=== PATIENT | male | born 1975 ===

== ENCOUNTER 2020-03-03 06:15 | Outpatient (REF) | payer OTHER, SELFPAY | END 2020-03-03 06:16 | disposition home or self-care (01) | LOC: HO.LAB 06:15 | PROVIDERS: Visit Provider Internal Medicine | DX: Z20.828 Contact with and (suspected) exposure to other viral communicable diseases (principal) | CPT/HCPCS: U0003 ==

== ENCOUNTER 2021-09-29 13:45 | Outpatient (REF) | payer MEDICAID, SELFPAY ==
--- NOTE | ~2021-09-29 | US_ITS ---
EXAMINATION: US SCROTUM CLINICAL INFORMATION: Hydrocele. COMPARISON: None TECHNIQUE: A sonogram of the scrotum was performed assessing khanna-scale appearance and color Doppler flow. Spectral Doppler analysis of the arterial and venous flow were performed in the testes bilaterally. FINDINGS: RIGHT: Right testicle measures 5.6 x 3.3 x 4.0 cm, volume 38.7 mL. No focal testicular parenchymal lesions are visualized. Spectral Doppler analysis of the arterial and venous flow is moderately increased in the right testis. There is a 2.9 x 1.5 x 2.9 cm simple appearing cyst in the epididymal head. No right varicocele is seen. Small volume of hydrocele. LEFT: Left testicle measures 5.0 x 3.5 x 3.7 cm, volume 33.9 mL. No focal testicular parenchymal lesions are visualized. There is a 0.5 cm scrotal estella. Spectral Doppler analysis of the arterial and venous flow is normal in the left testis. There is a complex multiseptated cystic appearing lesion in the epididymal head measuring 3.7 x 4.3 x 4.1 cm. There is a small hydrocele. Varicoceles are also noted. US/US scrotum IMPRESSION: 1. There is a complex multiseptated cystic appearing lesion in the left epididymal head measuring 4.3 cm. This is nonspecific, and further characterization with an MR with and without intravenous contrast is recommended. 2. Asymmetric increased vascular flow to the right testis. Correlate clinically for an infectious or inflammatory process. 3. Left-sided varicocele. 4. There are small bilateral hydroceles. 5. There is a simple appearing epididymal head cyst on the right side measuring 2.9 cm.
== END 2021-09-29 13:46 | disposition home or self-care (01) ==
LOC: HO.HMGCX 13:45
PROVIDERS: Visit Provider Student in an Organized Health Care Education/Training Program
DX: N43.3 Hydrocele, unspecified (principal)
CPT/HCPCS: 76870

== ENCOUNTER → 2021-10-07 09:49 | Outpatient (BNVA) | payer MEDICAID, SELFPAY | PROVIDERS: PCP Student in an Organized Health Care Education/Training Program; Visit Provider Surgery | DX: N50.82 Scrotal pain (principal); N43.3 Hydrocele, unspecified | CPT/HCPCS: 99202 ==

== ENCOUNTER 2022-05-20 05:02 | Emergency (ER) | payer MEDICAID, SELFPAY ==
--- NOTE | ~2022-05-20 | CT_ITS ---
EXAMINATION: CT ABDOMEN AND PELVIS WITHOUT CONTRAST CLINICAL INFORMATION: Left flank pain COMPARISON: None TECHNIQUE: Multidetector volumetric imaging was performed from the superior aspect of the liver through the pubic symphysis. Sagittal and coronal reformatted images were obtained on the technologist's workstation. This CT examination was performed using dose optimization techniques as appropriate, variously including the following: *Automated exposure control *Adjustment of mA and/or kV according to patient size (this includes techniques or standardized protocols for targeted exams where dose is matched to indication/reason for exam; i.e. extremities or head) *Use of iterative reconstruction technique DLP: 435 mGy-cm FINDINGS: LUNG BASES: Groundglass opacities at the right lung base. The visualized cardiac structures are unremarkable. LIVER, GALLBLADDER, AND BILIARY TREE: The liver is normal in size, shape, and attenuation. No focal hepatic lesion or biliary ductal dilatation is present. The gallbladder is unremarkable with no evidence of radiopaque gallstones, gallbladder wall thickening, or obvious pericholecystic inflammatory changes. PANCREAS: Unremarkable. SPLEEN: Unremarkable. ADRENAL GLANDS: Unremarkable. KIDNEYS AND URETERS: The kidneys are normal in size, shape, and attenuation. No hydronephrosis, hydroureter, or calculi seen. No perinephric stranding. BLADDER: Unremarkable. GASTROINTESTINAL TRACT: The stomach is unremarkable. Normal caliber small bowel. No obstruction. No colonic wall thickening or acute inflammation. Normal appendix. No free air or free fluid. ABDOMINAL WALL: No significant hernia is appreciated. LYMPH NODES: Normal. VASCULAR: Normal caliber aorta with minimal atherosclerotic calcifications. PELVIC VISCERA: The prostate and seminal vesicles are unremarkable. OSSEOUS STRUCTURES: No acute or suspicious osseous abnormality. Small endplate osteophytes of the lumbar spine. CT/CT abdomen pelvis wo IV con IMPRESSION: 1. No acute findings in the abdomen or pelvis. No hydronephrosis or nephrolithiasis. 2. Groundglass opacities at the right lung base could be infectious or inflammatory. Fleischner guidelines were followed.
[2022-05-20 05:21] VITALS: BP 126/80; PULSE 84; RESP 17; TEMP 36.8; O2SAT 97; BMI 24.2
[2022-05-20 05:30] VITALS: BP 126/80; PULSE 84; RESP 17; O2SAT 97
--- NOTE | 2022-05-20 05:42 | PC.NURSE ---
pt alert and oriented, labs collected and sent to lab via tube system
[2022-05-20 05:44] LABS: MANUAL DIFF FLAG NO
[2022-05-20 05:45] LABS: Basophils Absolute Auto 0.1 X10*3/uL (0.0-0.2); Basophils Percent Auto 0.9 % (0-2); Eosinophils Absolute Auto 0.2 X10*3/uL (0.0-0.4); Hematocrit 38.8 % (42.0-52.0); Hemoglobin 13.2 g/dl (14.0-18.0); Imm Gran Abs Auto 0.03 X10*3/uL (0.00-0.03); Imm Gran Pct Auto 0.4 % (0.0-0.4); Lymphocytes Absolute Auto 1.7 X10*3/uL (1.2-4.9); Lymphocytes Percent Auto 21.3 % (20-40); Mean Corpuscular Hemoglobin 28.4 pg (27.0-33.0); Mean Corpuscular Volume 83.4 fL (80.0-98.0); Mean Platelet Volume 9.8 fL (9.4-12.4); Monocytes Absolute Auto 0.6 X10*3/uL (0.1-1.2); Monocytes Percent Auto 7.3 % (2-11); Neutrophils Absolute Auto 5.5 x10*3/uL (2.0-8.3); Neutrophils Percent Auto 68.1 % (45-73); Platelet Count 205 X10*3/uL (160-400); Red Blood Count 4.65 X10*6/uL (4.60-5.80); White Blood Count 8.1 X10*3/uL (4.8-10.8)
[2022-05-20 05:46] LABS: Appearance Urine Clear; Color Urine Dark Yellow; Glucose Urine UA Negative (Negative); Leukocyte Esterase Urine Negative (Negative); Nitrite Urine Negative (Negative); Specific Gravity - Urine 1.025 (1.005-1.025); Urine Blood Negative (Negative); Urine Ketones Trace mg/dL (Negative); Urine Protein Negative (Neg-Trace)
[2022-05-20 06:26] LABS: Alanine Aminotransferase 18 U/L (0-40); Albumin Level 4.1 g/dL (3.5-5.0); Alkaline Phosphatase 52 U/L (39-117); Anion Gap 12 (12-20); Aspartate Amino Transferase 17 U/L (5-37); Bilirubin Direct < 0.2 mg/dL (0.0-0.5); Bilirubin Total 0.4 mg/dL (0.0-1.0); Blood Urea Nitrogen 20 mg/dL (9-16); Calcium 9.1 mg/dL (8.4-10.2); Carbon Dioxide 26 mmol/L (22-29); Chloride 105 mmol/L (96-108); Estimated Glomerular Filt Rate > 60; Glucose Random 87 mg/dL (60-115); Lipase 18 U/L (8-78); Potassium 4.1 mmol/L (3.3-5.1); Sodium 139 mmol/L (135-145); Total Protein 6.5 g/dL (6.5-8.0)
--- NOTE | 2022-05-20 08:03 | ED.BACK ---
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 he feels like he may have a problem with his kidney. He reports the pain is in his left lower back and radiates to his abdomen. He denies any nausea, vomiting, diarrhea. Normal bowel movement yesterday. He has no urinary symptoms. He states the pain is worse with palpation and movement. He is having a difficult time sleeping at walking due to the pain. He has been taking Motrin with minimal relief. He denies any fever, chills, chest pain, shortness of breath or URI symptoms. No rashes. <CHRISTIAN Lockwood Last Filed: 05/20/22 08:44> MD elicited complaint: back pain <CHRISTIAN Lockwood Last Filed: 05/20/22 08:44> Onset (ago): day(s) (4) <CHRISTIAN Lockwood Last Filed: 05/20/22 08:44> Timing: constant <CHRISTIAN Lockwood Last Filed: 05/20/22 08:44> Severity: moderate <CHRISTIAN Lockwood Last Filed: 05/20/22 08:44> Quality: aching <CHRISTIAN Lockwood Last Filed: 05/20/22 08:44> Location: left lower back <CHRISTIAN Lockwood Last Filed: 05/20/22 08:44> Radiation: abdomen <CHRISTIAN Lockwood - Last Filed: 05/20/22 08:44> Exacerbating factors: movement and walking <CHRISTIAN Lockwood - Last Filed: 05/20/22 08:44> Relieving factors: immobilization <CHRISTIAN Lockwood - Last Filed: 05/20/22 08:44> Context: unknown <CHRISTIAN Lockwood - Last Filed: 05/20/22 08:44> Associated symptoms: denies other symptoms <CHRISTIAN Lockwood - Last Filed: 05/20/22 08:44> Treatments prior to arrival: NSAIDS <CHRISTIAN Lockwood - Last Filed: 05/20/22 08:44> Work related injury: No <CHRISTIAN Lockwood - Last Filed: 05/20/22 08:44> Related Data Home Medications: Home Medications Medication Instructions Recorded Confirmed naproxen sodium 220 mg capsule 220 mg PO Q12H PRN 10/07/21 10/07/21 (Aleve) omeprazole 20 mg capsule,delayed 20 mg PO DAILY 10/07/21 10/07/21 release Previous Rx's Medication Instructions Recorded cyclobenzaprine 10 mg tablet 10 mg PO TID PRN muscle spasm #10 05/20/22 tabs lidocaine 5 % topical patch 1 patch topical DAILY #15 ea 05/20/22 naproxen 500 mg tablet 500 mg PO BID PRN pain #20 tabs 05/20/22 <CHRISTIAN Lockwood Last Filed: 05/20/22 08:44> Allergies/Adverse Reactions: Allergies Allergy/AdvReac Type Severity Reaction Status Date / Time No Known Allergies Allergy Verified 01/24/22 15:36 <CHRISTIAN Lockwood - Last Filed: 05/20/22 08:44> Review of Systems Review of Systems: Yes all other systems are reviewed and are negative <CHRISTIAN Lockwood Last Filed: 05/20/22 08:44> PMFSH Past Medical History Surgical History: Surgical History No pertinent past surgical history <CHRISTIAN Lockwood - Last Filed: 05/20/22 08:44> Family History Family History: Family History Maternal Uncle Leukemia <CHRISTIAN Lockwood - Last Filed: 05/20/22 08:44> Social History Social History: Social History Smoked in Last 30 Days: Yes Use of substances other than those prescribed or required for medical reasons: Yes Substance Use Type: Marijuana Advance Directives: No Advance Directives Information Provided: Yes <CHRISTIAN Lockwood - Last Filed: 05/20/22 08:44> Physical Exam Vital Signs: Vital Signs: Last Vital Signs Temp 98.2 F 05/20/22 05:21 Pulse 84 05/20/22 05:30 Resp 17 05/20/22 05:30 BP 126/80 05/20/22 05:30 Pulse Ox 97 05/20/22 05:30 O2 Del Method 05/20/22 05:30 BMI result Body Mass Index 24.2 <CHRISTIAN Lockwood - Last Filed: 05/20/22 08:44> Vital Signs: Last Vital Signs Temp 98.2 F 05/20/22 05:21 Pulse 84 05/20/22 05:30 Resp 17 05/20/22 05:30 BP 126/80 05/20/22 05:30 Pulse Ox 97 05/20/22 05:30 O2 Del Method 05/20/22 05:30 BMI result Body Mass Index 24.2 <Del Nelson MD - Last Filed: 05/20/22 15:47> Appearance: Alert. Oriented X3. No acute distress. Eyes: Pupils equal, round and reactive to light. ENT: Pharynx normal. Neck: Normal inspection. Neck supple. CVS: Normal heart rate and rhythm. Pulses normal. Respiratory: No respiratory distress. Breath sounds normal. Abdomen: Soft and nontender. +BS x4 Back: Soft tissue tenderness of the upper lumbar area throughout. No midline tenderness. Limited spinal flexion & rotation due to pain. No CVA tenderness. Skin: Skin warm and dry. Normal skin color. Normal skin turgor. No rashes. Extremities: No lower extremity edema. Neuro: Oriented X 3. No motor deficit. No sensory deficit. <CHRISTIAN Lockwood - Last Filed: 05/20/22 08:44> Course Course Course Narrative: 47-year-old male presents to the ER for evaluation of left-sided flank and back pain that radiates to his abdomen for the last 4 days. His exam is more consistent with soft tissue tenderness and muscle pain. No red flag symptoms of low back pain. His workup today was negative. CT scan did not show any acute abnormalities. UA without infection. Will treat for musculoskeletal pain and have him follow-up with PCP. Patient agrees with plan stable for discharge home. Return precautions discussed. <CHRISTIAN Lockwood - Last Filed: 05/20/22 08:44> Medical Decision Making Differential Diagnosis Differential Diagnoses: The differential diagnosis associated with the presentation includes <CHRISTIAN Lockwood - Last Filed: 05/20/22 08:44> Muscle strain, spasm, pyelonephritis, UTI, diverticulitis, appendicitis, degenerative disc disease, herniated disc <CHRISTIAN Lockwood - Last Filed: 05/20/22 08:44> Lab Data MDM Lab Attestation statement: I reviewed the patient's lab results. <CHRISTIAN Lockwood - Last Filed: 05/20/22 08:44> unremarkable results <CHRISTIAN Lockwood - Last Filed: 05/20/22 08:44> Result Diagrams: 05/20/22 05:37 05/20/22 05:37 <CHRISTIAN Lockwood - Last Filed: 05/20/22 08:44> Labs: Lab Results 05/20/22 05/20/22 05/20/22 Range/Units 05:37 05:37 05:37 WBC 8.1 (4.8-10.8) X10*3/uL RBC 4.65 (4.60-5.80) X10*6/uL Hgb 13.2 L (14.0-18.0) g/dl Hct 38.8 L (42.0-52.0) % MCV 83.4 (80.0-98.0) fL MCH 28.4 (27.0-33.0) pg MCHC 34.0 (31.0-36.0) g/dl RDW 14.0 (11.0-16.0) % Plt Count 205 (160-400) X10*3/uL MPV 9.8 (9.4-12.4) fL Immature Gran % (Auto) 0.4 (0.0-0.4) % Neut % (Auto) 68.1 (45-73) % Lymph % (Auto) 21.3 (20-40) % [place] % (Auto) 7.3 (2-11) % Eos % (Auto) 2.0 (0-4) % Baso % (Auto) 0.9 (0-2) % Lymph # (Auto) 1.7 (1.2-4.9) X10*3/uL [place] # (Auto) 0.6 (0.1-1.2) X10*3/uL Eos # (Auto) 0.2 (0.0-0.4) X10*3/uL Baso # (Auto) 0.1 (0.0-0.2) X10*3/uL Abs Immat Gran (auto) 0.03 (0.00-0.03) X10*3/uL Absolute Neuts (auto) 5.5 (2.0-8.3) x10*3/uL Absolute Nucleated RBC 0.000 (0.0-0.012) X10*3/uL Nucleated RBC % (auto) 0.0 (0.0-0.2) /100WBC Sodium 139 (135-145) mmol/L Potassium 4.1 (3.3-5.1) mmol/L Chloride 105 (96-108) mmol/L Carbon Dioxide 26 (22-29) mmol/L Anion Gap 12 (12-20) BUN 20 H (9-16) mg/dL Creatinine 0.69 (0.5-1.4) mg/dL Estim Creat Clear Calc 122.0 Estimated GFR > 60 Random Glucose 87 (60-115) mg/dL Calcium 9.1 (8.4-10.2) mg/dL Total Bilirubin 0.4 (0.0-1.0) mg/dL Direct Bilirubin < 0.2 (0.0-0.5) mg/dL AST 17 (5-37) U/L ALT 18 (0-40) U/L Alkaline Phosphatase 52 (39-117) U/L Total Protein 6.5 (6.5-8.0) g/dL Albumin 4.1 (3.5-5.0) g/dL Lipase 18 (8-78) U/L Urine Color Dark Yellow Urine Appearance Clear Urine pH 5.0 (5.0-9.0) Ur Specific [place] 1.025 (1.005-1.025) Urine Protein Negative (Neg-Trace) mg/dL Urine Glucose (UA) Negative (Negative) mg/dL Urine Ketones Trace (Negative) mg/dL Urine Blood Negative (Negative) Urine Nitrite Negative (Negative) Ur Leukocyte Esterase Negative (Negative) <CHRISTIAN Lockwood - Last Filed: 05/20/22 08:44> Lab Results 05/20/22 05/20/22 05/20/22 Range/Units 05:37 05:37 05:37 WBC 8.1 (4.8-10.8) X10*3/uL RBC 4.65 (4.60-5.80) X10*6/uL Hgb 13.2 L (14.0-18.0) g/dl Hct 38.8 L (42.0-52.0) % MCV 83.4 (80.0-98.0) fL MCH 28.4 (27.0-33.0) pg MCHC 34.0 (31.0-36.0) g/dl RDW 14.0 (11.0-16.0) % Plt Count 205 (160-400) X10*3/uL MPV 9.8 (9.4-12.4) fL Immature Gran % (Auto) 0.4 (0.0-0.4) % Neut % (Auto) 68.1 (45-73) % Lymph % (Auto) 21.3 (20-40) % [place] % (Auto) 7.3 (2-11) % Eos % (Auto) 2.0 (0-4) % Baso % (Auto) 0.9 (0-2) % Lymph # (Auto) 1.7 (1.2-4.9) X10*3/uL [place] # (Auto) 0.6 (0.1-1.2) X10*3/uL Eos # (Auto) 0.2 (0.0-0.4) X10*3/uL Baso # (Auto) 0.1 (0.0-0.2) X10*3/uL Abs Immat Gran (auto) 0.03 (0.00-0.03) X10*3/uL Absolute Neuts (auto) 5.5 (2.0-8.3) x10*3/uL Absolute Nucleated RBC 0.000 (0.0-0.012) X10*3/uL Nucleated RBC % (auto) 0.0 (0.0-0.2) /100WBC Sodium 139 (135-145) mmol/L Potassium 4.1 (3.3-5.1) mmol/L Chloride 105 (96-108) mmol/L Carbon Dioxide 26 (22-29) mmol/L Anion Gap 12 (12-20) BUN 20 H (9-16) mg/dL Creatinine 0.69 (0.5-1.4) mg/dL Estim Creat Clear Calc 122.0 Estimated GFR > 60 Random Glucose 87 (60-115) mg/dL Calcium 9.1 (8.4-10.2) mg/dL Total Bilirubin 0.4 (0.0-1.0) mg/dL Direct Bilirubin < 0.2 (0.0-0.5) mg/dL AST 17 (5-37) U/L ALT 18 (0-40) U/L Alkaline Phosphatase 52 (39-117) U/L Total Protein 6.5 (6.5-8.0) g/dL Albumin 4.1 (3.5-5.0) g/dL Lipase 18 (8-78) U/L Urine Color Dark Yellow Urine Appearance Clear Urine pH 5.0 (5.0-9.0) Ur Specific [place] 1.025 (1.005-1.025) Urine Protein Negative (Neg-Trace) mg/dL Urine Glucose (UA) Negative (Negative) mg/dL Urine Ketones Trace (Negative) mg/dL Urine Blood Negative (Negative) Urine Nitrite Negative (Negative) Ur Leukocyte Esterase Negative (Negative) <Del Nelson MD - Last Filed: 05/20/22 15:47> Independent Interpretation I performed an independent interpretation of an: CT Scan <CHRISTIAN Lockwood - Last Filed: 05/20/22 08:44> Interpretation: no kidney stones appreciated, no evidence of diverticulitis, no acute causes of his pain. <CHRISTIAN Lockwood - Last Filed: 05/20/22 08:44> Radiology Impression Discussion of test interpretation with radiology: I have reviewed the radiologist's reading. <CHRISTIAN Lockwood - Last Filed: 05/20/22 08:44> Radiologist Impression: IMPRESSION: 1.? No acute findings in the abdomen or pelvis. No hydronephrosis or nephrolithiasis. 2.? Groundglass opacities at the right lung base could be infectious or inflammatory. ? <CHRISTIAN Lockwood - Last Filed: 05/20/22 08:44> Tests considered The following testing was considered but not selected: CT chest - no cough, SOB, or clincial evidence of PNA. ok for further evaluation of minimal GGO as outpatient <CHRISTIAN Lockwood - Last Filed: 05/20/22 08:44> Prescription Management I considered prescription management with: Pain Medication <CHRISTIAN Lockwood - Last Filed: 05/20/22 08:44> Attestation Attending Attestation: 47-year-old male presents with back pain. 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 I agree with assessment and plan. I reviewed imaging studies as well as laboratory and. I agree with disposition. <Del Nelson MD - Last Filed: 05/20/22 15:47> Critical Care Time Critical Care Time Critical Care Time: No <CHRISTIAN Lockwood - Last Filed: 05/20/22 08:44> Discharge Plan Discharge Clinical Impression: Back pain <CHRISTIAN Lockwood - Last Filed: 05/20/22 08:44> Patient Disposition: Home, Self-Care <CHRISTIAN Lockwood - Last Filed: 05/20/22 08:44> Instructions: Back Pain (ED) <CHRISTIAN Lockwood - Last Filed: 05/20/22 08:44> Additional Instructions: Your labs and CT scan today were unremarkable. Your pain is most likely due to muscle pain in your back. No bending, lifting or twisting. Rest. No strenuous activity. Use ice several times per day for 20 minutes at a time for the next 48 hours and then change to heat. Take medications as prescribed to help with pain and discomfort. Follow up with your Primary Care Doctor this week. If your pain worsens, if you develop new numbness, tingling, weakness, loss of function or incontinence call 911 or come back to the ER right away for evaluation. Saima laboratorios y tomograf?a computarizada de hoy no tuvieron nada especial. Lo m?s probable es que rider dolor se deba a un dolor muscular en la espalda. Sin doblar, levantar o torcer. [place]. Ninguna actividad extenuante. Use hielo varias veces al d?a emma 20 minutos a la vez emma las pr?ximas 48 horas y luego cambie a calor. [place] los medicamentos seg?n lo prescrito para ayudar con el dolor y la incomodidad. [place] un seguimiento con rider m?dico de atenci?n primaria esta semana. Si rider dolor empeora, si desarrolla un nuevo entumecimiento, hormigueo, debilidad, p?rdida de funci?n o incontinencia, llame al 911 o regrese a la epifanio de emergencias de inmediato para con evaluaci?n. <CHRISTIAN Lockwood - Last Filed: 05/20/22 08:44> Prescriptions: New cyclobenzaprine 10 mg tablet 10 mg PO TID PRN (Reason: muscle spasm) Qty: 10 0RF lidocaine 5 % adhesive patch,medicated 1 patch topical DAILY Qty: 15 0RF Rx Instructions: leave on most painful area for up to 12 hrs naproxen 500 mg tablet 500 mg PO BID PRN (Reason: pain) Qty: 20 0RF No Action omeprazole 20 mg capsule,delayed release(DR/EC) 20 mg PO DAILY naproxen sodium [Aleve] 220 mg capsule 220 mg PO Q12H PRN <CHRISTIAN Lockwood - Last Filed: 05/20/22 08:44> Referrals: [facility] [Primary Care Provider] - <CHRISTIAN Lockwood - Last Filed: 05/20/22 08:44> Interventions: ED Discharge Assessment Last Done: 05/20/22 08:08 <CHRISTIAN Lockwood - Last Filed: 05/20/22 08:44> Discharge Date/Time: 05/20/22 08:09 <CHRISTIAN Lockwood - Last Filed: 05/20/22 08:44> Print Language: Vincentian <CHRISTIAN Lockwood - Last Filed: 05/20/22 08:44>
== END 2022-05-20 08:09 | disposition home or self-care (01) ==
PROVIDERS: Emergency Provider Emergency Medicine
DX: M54.50 Low back pain, unspecified (principal); R10.9 Unspecified abdominal pain
CPT/HCPCS: 36415; 74176; 80048; 80076; 81003; 83690; 85025; 99284

== ENCOUNTER → 2022-07-15 14:13 | Outpatient (BNVA) | payer MEDICAID, SELFPAY | PROVIDERS: Visit Provider Nurse Practitioner Family | DX: N43.42 Spermatocele of epididymis, multiple (principal); N50.82 Scrotal pain | CPT/HCPCS: 99202 ==

== ENCOUNTER 2023-11-13 13:17 | Outpatient (AMB) | payer OTHER, SELFPAY ==
--- NOTE | 2023-11-13 13:41 | MHC.OFFVIS ---
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 He presents to the office today for a follow up of his scrotal issues. 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 and did not want to request time off. He discusses since his last office visit here he has been having increased episodes of scrotal pain left side greater than righ. In assessment of the patient today bilateral large spermatoceles left side greater than right. In review of patient's chart it appears scrotal ultrasound from September 2021 with complex multi septated cystic appearing lesion in the left epididymal head measuring 4.3 cm. However on examination this appears approximately same size if not bigger. Scrotal ultrasound also showing simple appearing epididymal head cyst on the right side measuring 2.9 cm. Discussed treatment options of surgical interventions (bilateral spermatocelectomy) versus surveillance. He also reports noting increased episodes of nocturia up to 6 times per night. In office urinalysis results reviewed with the patient today. He otherwise denies urinary urgency, urinary frequency, incontinence, hematuria, dysuria, foul smelling urine, changes to urinary stream, flank pain, fever, and or chills. When asked he denies any history of sleep apnea and or signs and symptoms of sleep apnea. He otherwise offers no other issues or concerns at this time. [facility] Surgical History No pertinent past surgical history Family History Maternal Uncle Leukemia Social History Substance Use Type: Marijuana Review of Systems Const Reports as per HPI Eyes Reports no additional complaints ENT Reports no additional complaints Card Reports no additional complaints Resp Reports no additional complaints GI Reports no additional complaints Reports as per HPI Musc Reports no additional complaints Neuro Reports no additional complaints Psych Reports no additional complaints Endo Reports no additional complaints Jack/Lymph Reports no additional complaints Aller/Immun Reports no additional complaints Physical Exam Const General: cooperative, healthy appearing, comfortable, no acute distress, well developed, alert and awake Nutritional Appearance: average body habitus Orientation/consciousness: patient oriented x3 Limitations: no limitations HEENT Head: Yes normal to inspection, Yes normocephalic and Yes atraumatic Ears: hearing grossly normal bilaterally Eyes General: appearance normal, both eyes and all related structures Neck Neck: Yes normal visual inspection and Yes trachea midline Chest Chest palpation & inspection: normal inspection of the chest Resp Effort & Inspection: normal respiratory effort and able to speak in complete sentences Cardio Rate: regular rate GI Inspection: Yes normal to inspection General: Yes no CVA tenderness Penis: normal penis and uncircumcised Meatus: meatus normal Scrotum: Spermatocele present bilateral (large; left side greater than right ) Back/Spine/Pelvis Back: no CVA tenderness Skin General skin exam: no rashes or lesions noted Neuro General: patient oriented x3 Extrem General: Yes normal to inspection Psych Appearance: grossly normal and well kempt Mental Status: mental status grossly normal Speech and movement: Normal speech and movement present and Clear speech present Affect: normal affect Attitude: cooperative Thought process: Normal thought process present Thought content: Normal thought content present Insight: Good insight present (Psych) Judgement: Good judgement present (Psych) Results AMB Urinalysis, Automated UA Leukoctes 0 Андрей/uL Last Edit by Stayzillalindsey on 11/13/23 13:49 UA Nitrite Negative Last Edit by [employer] on 11/13/23 13:49 UA Urobilinogen 0.2 mg/dL Last Edit by [employer] on 11/13/23 13:49 UA Protein 15 mg/dL Last Edit by [employer] on 11/13/23 13:49 UA pH 5.5 Last Edit by [employer] on 11/13/23 13:49 UA Blood 0 Oneil/uL Last Edit by [employer] on 11/13/23 13:49 UA Specific [place] 1.030 Last Edit by Earlene Zuniga on 11/13/23 13:49 UA Ketone Positive Last Edit by Earlene Bocanegralindsey on 11/13/23 13:49 UA Bilirubin 0 mg/dL Last Edit by Earlene Bocanegralindsey on 11/13/23 13:49 UA Glucose 0 mg/dL Last Edit by Earlene Bocanegralindsey on 11/13/23 13:49 Results Reviewed Results Reviewed: Laboratory Last Values Urine pH (Auto) 5.5 11/13/23 13:45 Specific [place] (Auto) 1.030 11/13/23 13:45 Urine Protein (Auto) 15 mg/dL 11/13/23 13:45 Glucose (UA)(Auto) 0 mg/dL 11/13/23 13:45 Urine Ketones (Auto) Positive 11/13/23 13:45 Urine Blood (Auto) 0 Oneil/uL 11/13/23 13:45 Urine Nitrite (Auto) Negative 11/13/23 13:45 Urine Bilirubin (Auto) 0 mg/dL 11/13/23 13:45 Urine Urobilinogen (Auto) 0.2 mg/dL 11/13/23 13:45 Leukocyte Esterase (Auto) 0 Андрей/uL 11/13/23 13:45 Assessment & Plan Assessment & Plan (1) Spermatocele of epididymis, multiple: Code(s): N43.42 - Spermatocele of epididymis, multiple Category: Medical (2) Hydrocele: Code(s): N43.3 - Hydrocele, unspecified Category: Medical (3) Epididymal cyst: Code(s): N50.3 - Cyst of epididymis Category: Medical Plan: Risks, benefits and alternatives to therapy were discussed. These include but are not limited to infection, bleeding, damage to local organs and tissues, need for further interventions. ? Anesthetic risks regarding cardiac arrhythmia, blood clots, and potential mortality were discussed. The patient understands the typical recovery time and the outpatient nature of the procedure. After consideration of these risks the patient gives full informed consent and they wish to move ahead with the procedure. Plan In office urinalysis results reviewed with the patient today; as noted above. Discussed at length surveillance monitoring versus surgical intervention of left sided complex epididymal cyst as well as bilateral spermatoceles; risks and benefits of these interventions were discussed at length. All questions were answered. Discussed obtaining MRI pelvis as recommended per previous scrotal ultrasound. Will obtain retroperitoneal ultrasound for further assessment evaluation. Will obtain PSA for further assessment evaluation. Discussed importance of limiting fluids 2-3 hours prior to bed to decrease episodes of nocturia. Will schedule for surgical procedure pending MRI results. Follow-up with provider in office to review retroperitoneal ultrasound and PSA; or sooner with any issues, concerns, and or questions. Orders: Orders AMB Urinalysis Automated Today Z13.9 - Encounter for screening, unspecified Prostate Specific Antigen Today N40.0 - Benign prostatic hyperplasia without lower urinary tract symptoms, R35.1 - Nocturia US retroperitoneal comp Today R35.1 - Nocturia MR pelvis wo/w con Today N43.3 - Hydrocele, unspecified, N43.42 - Spermatocele of epididymis, multiple, N50.3 - Cyst of epididymis Patient Instructions: The patient had an opportunity to ask questions regarding the treatment plan. All questions were answered. Physical exam, labs, and imaging were discussed and reviewed in detail. As well as risks, benefits, and discussion of treatment choices. No major barriers to understanding were identified. The patient expressed understanding and agreement with the above treatment plan. The patient was made aware they should contact our office by phone for worsening of their current condition, the appearance of new symptoms, or with any questions or concerns. Compliance is encouraged with any medications and follow up testing that is ordered. It is a privilege to be allowed the opportunity to participate in? your urological care.? Again, if you have any questions or concerns If you have any questions or concerns please do not hesitate to contact me. The office is [phone]. This note is constructed using voice recognition software. While every effort has been made to ensure accuracy global cto errors may have been included. Yours sincerely, RAND Boyd Coding Level of Care Code Est Pt Level 4 (16071) Diagnoses Spermatocele of epididymis, multiple N43.42 Hydrocele N43.3 Epididymal cyst N50.3 Time Spent (min) 35
== END 2023-11-13 14:09 | disposition home or self-care (01) ==
PROVIDERS: PCP Student in an Organized Health Care Education/Training Program; Visit Provider Nurse Practitioner Family
DX: N43.42 Spermatocele of epididymis, multiple (principal); N43.3 Hydrocele, unspecified; N50.3 Cyst of epididymis; Z13.9 Encounter for screening, unspecified
CPT/HCPCS: 99214

== ENCOUNTER → 2023-11-13 13:17 | Outpatient (BNVA) | payer OTHER, SELFPAY | PROVIDERS: PCP Student in an Organized Health Care Education/Training Program; Visit Provider Nurse Practitioner Family | DX: N43.42 Spermatocele of epididymis, multiple (principal); N43.3 Hydrocele, unspecified; N50.3 Cyst of epididymis | CPT/HCPCS: 81003; 99212 ==

== ENCOUNTER 2023-11-21 11:13 | Outpatient (REF) | payer OTHER, SELFPAY ==
--- NOTE | ~2023-11-21 | US_ITS ---
EXAMINATION: US RETROPERITONEAL COMPLETE (RENAL) CLINICAL INFORMATION: Nocturia. COMPARISON: CT abdomen and pelvis 05/20/2022. TECHNIQUE: Real-time imaging of the kidneys and bladder. FINDINGS: RIGHT KIDNEY: 11.5 x 5.3 x 5.6 cm (SAG x AP x TRV). The kidney is normal in size, contour, and echogenicity. Renal cortical thickness is normal. No calculi or focal parenchymal lesions. No hydronephrosis. LEFT KIDNEY: 12.1 x 6.2 x 5.6 cm (SAG x AP x TRV). The kidney is normal in size, contour, and echogenicity. Renal cortical thickness is normal. No calculi or focal parenchymal lesions. No hydronephrosis. BLADDER: Well distended and normal. Right ureteral jet is demonstrated; left is not. Prevoid bladder volume is 150 mL. Postvoid bladder volume is 4.6 mL. ADDITIONAL FINDINGS: Prostate in the upper limits of normal at 25.2 mL. Some central calcifications are present. The median lobe protrudes into the bladder slightly. Similar volume prostate was present at the time of the 05/20/2022 CT scan. US/US retroperitoneal comp IMPRESSION: 1. Normal-appearing kidneys. 2. Borderline BPH with median lobe protruding into the bladder.
== END 2023-11-21 11:14 | disposition home or self-care (01) ==
LOC: HO.HMGCX 11:13
PROVIDERS: PCP Student in an Organized Health Care Education/Training Program; Visit Provider Nurse Practitioner Family
DX: R35.1 Nocturia (principal)
CPT/HCPCS: 76770

== ENCOUNTER 2024-04-06 08:48 | Outpatient (REF) | payer OTHER, SELFPAY ==
[2024-04-06 11:03] LABS: Prostate Specific Antigen 2.95 ng/mL (<0.05-4.0)
== END 2024-04-06 08:49 | disposition home or self-care (01) ==
LOC: HO.LAB 08:48
PROVIDERS: PCP Internal Medicine; Visit Provider Nurse Practitioner Family
DX: R35.1 Nocturia (principal); N40.0 Benign prostatic hyperplasia without lower urinary tract symptoms
CPT/HCPCS: 36415; 84153

== ENCOUNTER 2024-04-15 13:25 | Outpatient (AMB) | payer OTHER, SELFPAY ==
--- NOTE | 2024-04-15 13:32 | A.OFFVIS_ITS ---
Intake Visit Reasons: 3m/PSA/Imaging- r/s(set) Intake Note: Patient presents today for follow up on: varicocele/hydrocele, ultrasound and lab results Imaging Completed: 11/21/23 PSA: 2.95 Urology Medications: none Blood thinner: none Antibiotic Allergies: none Injectable medications: none Proof Coins Inspector Required: Yes Accompanied by: Spouse Allergies No Known Allergies Allergy (Verified 04/15/24 21:19) Medication List - Last Reconciled 04/15/24 by DILLON Boyd- omeprazole 20 mg PO DAILY HPI Comments Details: Kvng is a pleasant 49-year-old Mohawk speaking male patient who was accompanied by his partner at today's visit. He presents to the office today for a follow up of his scrotal issues. In discussion with the patient today he continues to report intermittent episodes of scrotal pain left side greater than right. During previous office visits we have discussed bilateral sp ermatocelectomy however patient wished to continue with surveillance monitoring. Patient with previous imaging scrotal imaging 05/22 that noted complex multi septated cystic appearing lesion in the left epididymal head measuring 4.3 cm. Recommendation for MR with and without IV contrast was recommended per radiology report. This was discussed at last office visit and patient was enquiring MRI however this was never completed. We discussed surgical intervention versus surveillance monitoring verses obtaining MRI. He is also requiring a vasectomy. During last office visit patient had been reporting lower urinary tract symptoms therefore a retroperitoneal ultrasound was ordered as well as a PSA and these results were reviewed with the patient and his partner today. Retroperitoneal ultrasound 11/21 bilateral kidneys are normal in size, contour, and echogenicity. The bladder is well distended and normal. Pre void volume is a proximally 150 mL. Postvoid bladder volume is a proximally 5 mL. Prostate in the upper limits of normal at 25 mL. Central calcifications are present. The median lobe protrudes into the bladder slightly. PSA 04/23 3.0. Patient discusses recently starting a new job and feels this has been helpful in scrotal discomfort he had been experiencing throughout the day however continues to experience scrotal discomfort at night. In assessment of the patient today bilateral large spermatoceles left side greater than right. In office urinalysis results reviewed with the patient today. He otherwise denies urinary urgency, urinary frequency, incontinence, hematuria, dysuria, foul smelling urine, changes to urinary stream, flank pain, fever, and or chills. We discussed redraw of PSA. He otherwise offers no other issues or concerns at this time. Vasectomy evaluation The patient presents for vasectomy consultation.? He is currently single He has fathered -?3 children with one single partner. The youngest child is -16 years. His partner is aware and permissive for a vasectomy. Current form of control is hormones. 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 The vasectomy may be complicated due to a history of spermatoceles and small bilateral hydroceles. Patient education has been provided via [facility] video, via printed information, risks of failure, recovery time, bruising and potential pain syndrome have been stressed Discussion today focused on the presence of vasectomy and the risks, benefits and alternatives that are available. Vasectomy as intended as a permanent form of control. Printed information and literature was provided to the patient. Overall there is a one in 2500 failure rate. This can occur at any time after vasectomy. Risks were discussed highlighting hematoma, spermatocele, epididymal congestion, development of sperm antibodies, and development of chronic pain estimated between 1-5%. The procedure was reviewed in detail. Anatomical diagrams of the male genitalia were used to explain the location of the vas deferens. The vas deferens will be transected, the proximal end will be cauterized, a metal clip would be applied to separate the 2 vas deferens ends. Less common problems that arise with vasectomy include hematoma, bleeding, allergic reaction to anesthetic, epididymal infection, epididymal congestion, scrotal discomfort, spermatic leak, spermatic granuloma and the possibility of antisperm antibodies. He understands these risks and wishes to proceed. Consent was signed at the office today. He also understands that it takes 12 weeks for sperm to fully clear the system. He will need to provide a semen sample at 12 weeks and if this is not clear a 2nd sample at 16 weeks. Medical clearance to stop using protection will only be provided if he satisfies published criteria for sperm clearance. [facility] Surgical History No pertinent past surgical history Family History Maternal Uncle Leukemia Social History Substance Use Type: Marijuana Review of Systems Const Reports as per HPI Eyes Reports no additional complaints ENT Reports no additional complaints Card Reports no additional complaints Resp Reports no additional complaints GI Reports no additional complaints Reports as per HPI Musc Reports no additional complaints Neuro Reports no additional complaints Psych Reports no additional complaints Endo Reports no additional complaints Jack/Lymph Reports no additional complaints Aller/Immun Reports no additional complaints Physical Exam Const General: cooperative, healthy appearing, comfortable, no acute distress, well developed, alert and awake Nutritional Appearance: average body habitus Orientation/consciousness: patient oriented x3 Limitations: no limitations HEENT Head: Yes normal to inspection, Yes normocephalic and Yes atraumatic Ears: hearing grossly normal bilaterally Eyes General: appearance normal, both eyes and all related structures Neck Neck: Yes normal visual inspection and Yes trachea midline Chest Chest palpation & inspection: normal inspection of the chest Resp Effort & Inspection: normal respiratory effort and able to speak in complete sentences Cardio Rate: regular rate GI Inspection: Yes normal to inspection General: Yes no CVA tenderness Penis: normal penis and uncircumcised Meatus: meatus normal Scrotum: Spermatocele present bilateral (large; left side greater than right ) Back/Spine/Pelvis Back: no CVA tenderness Skin General skin exam: no rashes or lesions noted Neuro General: patient oriented x3 Extrem General: Yes normal to inspection Psych Appearance: grossly normal and well kempt Mental Status: mental status grossly normal Speech and movement: Normal speech and movement present and Clear speech present Affect: normal affect Attitude: cooperative Thought process: Normal thought process present Thought content: Normal thought content present Insight: Good insight present (Psych) Judgement: Good judgement present (Psych) Results AMB Urinalysis, Automated UA Leukoctes 0 Андрей/uL Last Edit by Earlene Zuniga on 04/15/24 14:32 UA Nitrite Last Edit by Earlene Zuniga on 04/15/24 14:32 UA Urobilinogen 0.2 mg/dL Last Edit by Earlene Zuniga on 04/15/24 14:32 UA Protein 15 mg/dL Last Edit by Earlene Zuniga on 04/15/24 14:32 UA pH 6.0 Last Edit by Earlene Zuniga on 04/15/24 14:32 UA Blood 25 Oneil/uL Last Edit by Earlene Zuniga on 04/15/24 14:32 UA Specific [place] 1.030 Last Edit by Lionelyccarlo Zuniga on 04/15/24 14:32 UA Ketone Last Edit by [employer] Zuniga on 04/15/24 14:32 UA Bilirubin 0 mg/dL Last Edit by Earlene Zuniga on 04/15/24 14:32 UA Glucose 0 mg/dL Last Edit by Earlene Zuniga on 04/15/24 14:32 Results Reviewed Results Reviewed: Laboratory Last Values Urine pH (Auto) 6.0 04/15/24 14:31 Specific [place] (Auto) 1.030 04/15/24 14:31 Urine Protein (Auto) 15 mg/dL 04/15/24 14:31 Glucose (UA)(Auto) 0 mg/dL 04/15/24 14:31 Urine Blood (Auto) 25 Oneil/uL 04/15/24 14:31 Urine Bilirubin (Auto) 0 mg/dL 04/15/24 14:31 Urine Urobilinogen (Auto) 0.2 mg/dL 04/15/24 14:31 Leukocyte Esterase (Auto) 0 Андрей/uL 04/15/24 14:31 Date of Service: 11/21/23 EXAMINATION: US RETROPERITONEAL COMPLETE (RENAL) FINDINGS: RIGHT KIDNEY: 11.5 x 5.3 x 5.6 cm (SAG x AP x TRV). The kidney is normal in size, contour, and echogenicity. Renal cortical thickness is normal. No calculi or focal parenchymal lesions. No hydronephrosis. LEFT KIDNEY: 12.1 x 6.2 x 5.6 cm (SAG x AP x TRV). The kidney is normal in size, contour, and echogenicity. Renal cortical thickness is normal. No calculi or focal parenchymal lesions. No hydronephrosis. BLADDER: Well distended and normal. Right ureteral jet is demonstrated; left is not. Prevoid bladder volume is 150 mL. Postvoid bladder volume is 4.6 mL. ADDITIONAL FINDINGS: Prostate in the upper limits of normal at 25.2 mL. Some central calcifications are present. The median lobe protrudes into the bladder slightly. Similar volume prostate was present at the time of the 05/20/2022 CT scan. IMPRESSION: 1. Normal-appearing kidneys. 2. Borderline BPH with median lobe protruding into the bladder. Assessment & Plan Assessment & Plan (1) Elevated PSA: Code(s): R97.20 - Elevated prostate specific antigen [PSA] Category: Medical (2) Spermatocele of epididymis, multiple: Code(s): N43.42 - Spermatocele of epididymis, multiple Category: Medical (3) Scrotal pain: Code(s): N50.82 - Scrotal pain Category: Medical (4) Nocturia: Code(s): R35.1 - Nocturia Category: Medical (5) Anxiety about health: Code(s): R45.89 - Other symptoms and signs involving emotional state Category: Medical (6) Vasectomy evaluation: Code(s): Z30.09 - Encounter for other general counseling and advice on contraception Category: Medical Plan: Risks, benefits and alternatives to therapy were discussed. These include but are not limited to infection, bleeding, damage to local organs and tissues, need for further interventions. ? Anesthetic risks regarding cardiac arrhythmia, blood clots, and potential mortality were discussed. The patient understands the typical recovery time and the outpatient nature of the procedure. After consideration of these risks the patient gives full informed consent and they wish to move ahead with the procedure. Plan In office urinalysis results reviewed with the patient today; as noted above. We discussed at length further treatment options of spermatoceles; we discussed further assessment evaluation with MRI verses surgical intervention versus surveillance monitoring; risks and benefits of these interventions were discussed at length. All questions were answered. Recent retroperitoneal ultrasound results reviewed with the patient today; as noted above. Recent PSA results reviewed with the patient today; as noted above. Discussed redraw of PSA with no sex the night before, no caffeine morning of, and no heavy lifting 1-2 days prior. Consent for vasectomy obtained. Will schedule for bilateral spermatocelectomy as well as vasectomy in OR as discussed. Follow-up per doctor's orders; or sooner with any issues, concerns, and or questions. Orders: Orders AMB Urinalysis Automated 04/15/24 Z13.9 - Encounter for screening, unspecified Prostate Specific Antigen 04/15/24 R97.20 - Elevated prostate specific antigen [PSA] Patient Instructions: The patient had an opportunity to ask questions regarding the treatment plan. All questions were answered. Physical exam, labs, and imaging were discussed and reviewed in detail. As well as risks, benefits, and discussion of treatment choices. No major barriers to understanding were identified. The patient expressed understanding and agreement with the above treatment plan. The patient was made aware they should contact our office by phone for worsening of their current condition, the appearance of new symptoms, or with any questions or concerns. Compliance is encouraged with any medications and follow up testing that is ordered. It is a privilege to be allowed the opportunity to participate in? your urological care.? Again, if you have any questions or trena rns If you have any questions or concerns please do not hesitate to contact me. The office is [phone]. This note is constructed using voice recognition software. While every effort has been made to ensure accuracy airline dispatcher errors may have been included. Yours sincerely, RAND Boyd Coding Level of Care Code Est Pt Level 4 (02509) Complex EM visit Add On G2211 Diagnoses Elevated PSA R97.20 Spermatocele of epididymis, multiple N43.42 Scrotal pain N50.82 Nocturia R35.1 Anxiety about health R45.89 Vasectomy evaluation Z30.09 Time Spent (min) 35
== END 2024-04-15 13:56 | disposition home or self-care (01) ==
PROVIDERS: PCP Student in an Organized Health Care Education/Training Program; Visit Provider Nurse Practitioner Family
DX: Z13.9 Encounter for screening, unspecified (principal)

== ENCOUNTER → 2024-04-15 13:25 | Outpatient (BNVA) | payer OTHER, SELFPAY | PROVIDERS: PCP Student in an Organized Health Care Education/Training Program; Visit Provider Nurse Practitioner Family | DX: R97.20 Elevated prostate specific antigen [PSA] (principal); N43.42 Spermatocele of epididymis, multiple; N50.82 Scrotal pain; R35.1 Nocturia; F41.8 Other specified anxiety disorders; Z30.09 Encounter for other general counseling and advice on contraception | CPT/HCPCS: 81003; 99212 ==

== ENCOUNTER 2024-04-22 06:07 | Outpatient (REF) | payer OTHER, SELFPAY ==
[2024-04-22 09:10] LABS: Prostate Specific Antigen 2.05 ng/mL (<0.05-4.0)
== END 2024-04-22 06:08 | disposition home or self-care (01) ==
LOC: HO.LAB 06:07
PROVIDERS: PCP Internal Medicine; Visit Provider Nurse Practitioner Family
DX: R97.20 Elevated prostate specific antigen [PSA] (principal)
CPT/HCPCS: 36415; 84153

== ENCOUNTER 2024-06-10 11:46 | Day surgery (SDC) | payer OTHER, SELFPAY ==
--- NOTE | 2024-06-07 10:16 | HO.ANESPROP2 ---
HPI - Anesthesia Eval Consult details Narrative: 49yo M for Bilateral Excision Spermatocele, Vasectomy PMFSH Active Problems Active Problems: All Active Problems Vasectomy evaluation (Acute) Anxiety about health (Acute) Elevated PSA (Acute) Epididymal cyst (Acute) Nocturia (Acute) Spermatocele of epididymis, multiple (Acute) Hydrocele (Acute) Scrotal pain (Acute) Past Medical History Medical History (Updated 06/06/24 @ 13:19 by Sandra Kern RN) GERD (gastroesophageal reflux disease) Spermatocele of epididymis, multiple Nocturia Family History Family History Maternal Uncle Leukemia Surgical History Surgical History No pertinent past surgical history Social History Social History Substance Use Type: Marijuana Meds Allergies Allergy/AdvReac Type Severity Reaction Status Date / Time No Known Allergies Allergy Verified 04/15/24 21:19 Home Medications ?Medication ?Instructions ?Recorded ?Confirmed ?Last Taken ?Type omeprazole 20 mg capsule,delayed 20 mg PO DAILY 10/07/21 06/06/24 Unknown History release Exam Height,Weight and Vital Signs: Height 5 ft 6 in Assessment and Plan Assessment Anesthesia Assessment: Chart Reviewed
[2024-06-10] VITALS (7 sets, daily range): BP systolic 122–150; BP diastolic 78–90; PULSE 65–85; RESP 16–18; TEMP 36.4–36.8; O2SAT 98–100; BMI 24.2
[2024-06-10] MEDS: Lactated Ringers 1,000 ML 100 ML IVCONT (12:11)
--- OUTSIDE RECORDS SUMMARY | 2024-06-10 13:04 | XMS_ITS | Encounter Summary ---
Author Organization [employer] Address [address] [place] [address] 7[address] [place] [address] Care Team Providers Care Economics Teacher Name Role Phone Unavailable Primary Care Provider Unavailabl e Reason for Visit * Reason Onset Date Comments New Patient Appt 12/01/2022 Encounter Details Date Type Department Care Team (Late st Contact Info) Description 12/01/2022 Telephone [facility] MEDICINE [address] [place] [address] Alvaro Westfall MD [address] [place] [address] New Patient Appt Social History Tobacco Use Types Packs/Day Years Used Date Smoking Tobacco: Never Smokeless Tobacco: Never Sex and Gender Information Value Date Recorded Sex Assigned at Male 02/28/2022 10:40 AM EDT Legal Sex Male 10:40 AM EDT Gender Identity Choose not to disclose 10:40 AM EDT Sexual Orientation Choose not to disclose 2021 10:40 AM EDT documented as of this encounter Miscellaneous Notes * Telephone Encounter - Maxine Galvin - 12/01/2022 12:04 PM EDT FIORELLA Hernandez Called Pt to Offer SALES ACCOUNT REPRESENTATIVE Appt, could not reach pt due to phone being out of service . documented in this encounter Plan of Treatment Not on file documented as of this encounter Visit Diagnoses Not on filedocumented in this encounter
--- OUTSIDE RECORDS SUMMARY | 2024-06-10 13:04 | XMS_ITS | Clinical Summary ---
Author Organization [employer] Address [address] [place] [address] 7t [place] [address] Care Team Providers Care Communications Professional Name Role Phone Unavailable Primary Care Provider Unavailabl e Allergies No known active allergies Medications ibuprofen 400 MG tabletIndicatio ns:Cyst of epididymis determined by ultrasound Take 1 tablet (400 mg) by mouth every 6 (six) hours if needed for moderate pain or fever for up to 30 doses. 30 tablet 05/30/2022 Active Active Problems No known active problems Social History Tobacco Use Types Packs/Day Years Used Date Smoking Tobacco: Never Smokeless Tobacco: Never Tobacco Cessation:Counseling Given: Not Answered Sex and Gender Information Value Date Recorded Sex Assigned at Male 02/28/2022 10:40 AM EDT Legal Sex Male 10:40 AM EDT Gender Identity Choose not to disclose 10:40 AM EDT Sexual Orientation Choose not to disclose 2021 10:40 AM EDT Last Filed Vital Signs Vital Sign Reading Time Taken Comments Blood Pressure 136/90 05/30/2022 8:59 AM EST Pulse 80 05/30/2022 8:59 AM EST Temperature 36.7 ??C (98.1 ??F) 05/30/2022 8:59 AM ES T Respiratory Rate 17 05/30/2022 8:59 AM EST Oxygen Saturation 98% 05/30/2022 8:59 AM EST Inhaled Oxygen Concentration - - Weight 69.7 kg (153 lb 9.6 oz) 05/30/2022 8:59 A M EST Height 167.6 cm (5' 6 ) 05/30/2022 8:59 AM EST Body Mass Index 24.79 05/30/2022 8:59 AM EST Plan of Treatment Health Maintenance Due Date Last Done Comments CT Colonography 1977 Colonoscopy 1977 Colorectal Cancer Screening 1977 Depression Screening 1977 FIT DNA/Cologuard 1977 FIT 1977 FOBT 1977 HIV Screening 1977 Lipid Panel 1977 SDOH Screening 1977 Sigmoidoscopy 1977 Alcohol/Substance Use Screening 1989 Family Planning (PISQ) 02/07/1992 Hepatitis C Screening 1995 Hepatitis B Vaccines (2 of 3 - 19+ 3-dose series) 12/26/2016 11/28/2016 Tobacco Screening 05/30/2023 05/30/2022 COVID-19 Vaccine ( - season) 2023 Influenza Vaccine (#1) 2023 , 03/07/2019, 03/30/2018, Additional history exists Zoster Vaccines (1 of 2) 2027 DTaP/Tdap/Td Vaccines (2 - Td or Tdap) 03/30/2028 03/30/2018 RSV Patients and Patients Aged 60 years or older (1 - 1-dose 75+ series) 02/07/2052 HIB Vaccines Aged Out No longer eligi ble based on patient's age to complete this topic HPV Vaccines Aged Out No longer eligi ble based on patient's age to complete this topic Hepatitis A Vaccines Aged Out No long er eligible based on patient's age to complete this topic IPV Vaccines Aged Out No longer eligi ble based on patient's age to complete this topic Meningococcal Vaccine Aged Out No dolores greta eligible based on patient's age to complete this topic Pneumococcal Vaccine: Pediatrics (0 to 5 Years) and At-Risk Patients (6 to 49) Years) Aged Out No longer eligible based on patient's age to complete this topic RSV under 20 months Aged Out No longe r eligible based on patient's age to complete this topic Rotavirus Vaccines Aged Out No longer eligible based on patient's age to complete this topic Insurance [facility] C[address] [place]
--- OUTSIDE RECORDS SUMMARY | 2024-06-10 13:04 | XMS_ITS | Encounter Summary ---
Author Organization [employer] Address [address] [facility] [address] [address] 7[address] [place] [address] Care Team Providers Care Sales Operations Analyst Name Role Phone Unavailable Primary Care Provider Unavailabl e Reason for Visit * Reason Onset Date Comments Med Refill 03/07/2023 Encounter Details Date Type Department Care Team (Late st Contact Info) Description 03/07/2023 Refill [facility] [address] [place] [address] Krzysztof Smith MD [address] [place] [address] Cyst of epididymis determined by ultrasound Social History Tobacco Use Types Packs/Day Years Used Date Smoking Tobacco: Never Smokeless Tobacco: Never Sex and Gender Information Value Date Recorded Sex Assigned at Male 02/28/2022 10:40 AM EDT Legal Sex Male 10:40 AM EDT Gender Identity Choose not to disclose 10:40 AM EDT Sexual Orientation Choose not to disclose 2021 10:40 AM EDT documented as of this encounter Plan of Treatment Not on file documented as of this encounter Visit Diagnoses Diagnosis Cyst of epididymis determined by ultrasound documented in this encounter
--- OUTSIDE RECORDS SUMMARY | 2024-06-10 13:04 | XMS_ITS | Clinical Summary ---
Author Organization [address] Address [address] [place] [phone] Phone Care Team Providers Care Eyeglass Frames Polisher Name Role Phone Cameron Gonzalez MD Primary Care Provider [phone] Allergies No known active allergies Medications carbamide peroxide (Debrox) 6.5 % otic solution Administer 5 drops into affected ear(s). 4 Active multivit-min/fe rrous fumarate (MULTI VITAMIN ORAL) Take 1 tablet by mouth 1 (one) time each day. 3 Active scopolamine (TRANSDERM-SCOP ) 1 mg over 3 days patch [address] 1 patch on the skin. 3 Active omeprazole (PriLOSEC) [address] capsule TAKE 1 CAPSULE BY MOUTH EVERY DAY 90 capsule 4 Active erythromycin 5 mg/gram (0.5 %) ophthalmic ointment Apply to affected eye 4 times a day for 7 days 3.5 g 5 Active Active Problems Problem Noted Date Diagnosed Date Prediabetes 02/18/2020 Varicocele 10/06/2016 Overview (06/16/2023): Testicular discomfort intermittent, significant pain when present. 2011 Hiatal hernia 10/06/2016 Overview (06/16/2023): Mild reducible 2011 Genital warts 10/06/2016 Mixed hyperlipidemia 09/28/2016 GERD (gastroesophageal reflux disease) 7 Encounters Date Type Department Care Team Description 05/20/2024 1:45 PM EST Office Visit Walk-In [address] [address] Cullen Larios, SEARCH ENGINE MARKETING MANAGER Symptoms of upper respiratory infection in pediatric patient (Primary Dx) from Last 3 Months Immunizations Name Administration Dates Next Due Hepatitis B (Hljzkkz-Z-Qpyye , Recombivax HB-Adult) 19yo and older 11/28/2016 Influenza Quadravalent, MDCK , 0.5ml, preservative free (Flucelvax) 6mo and older 03/10/2023,02/17/2020,03/07/2019,2017 Td Tetanus diptheria (Tdvax) 7yo and older 02/09/2011 Tdap Tetanus diptheria acell ular pertussis (Boostrix; Adacel) 7yo and older 03/30/2018 Surgical History Surgery Date Site/Laterality Comments COLONOSCOPY 12/14/2015 PROCEDURE: HISTORICAL COLONOSCOPY; COMMENT: and esophagogastroduodenoscopy Dr. Deyvi Stern Medical History Medical History Date Comments GERD (gastroesophageal reflu x disease) 09/27/2016 DX:GERD (gastroesophageal re flux disease) Genital warts 10/06/2016 DX:Genital warts HLD (hyperlipidemia) 09/28/2016 DX:HLD (hyp erlipidemia) Hiatal hernia 10/06/2016 DX:Hiatal hernia ; COMMENT: Mild reducible 2011 Varicocele 10/06/2016 DX:Varicocele; C OMMENT: Testicular discomfort intermittent, significant pain when present. 2011 Family History Medical History Relation Name Comments Other: heart problem Maternal Grandmother Diabetes Mother HTN Asthma Sister Other: leukemia Uncle Relation Name Status Comments Maternal Grandmother Mother Sister Uncle Social History Tobacco Use Types Packs/Day Years Used Date Smoking Tobacco: Former Cigarettes Smokeless Tobacco: Never Alcohol Use Standard Drinks/Week Comments Yes 0 (1 standard drink = 0.6 oz pur e alcohol) Sex and Gender Information Value Date Recorded Sex Assigned at Not on file Legal Sex Male 3:32 PM EST Gender Identity Not on file Sexual Orientation Not on file Obstetrics History Last Filed Vital Signs Vital Sign Reading Time Taken Comments Blood Pressure 120/80 05/20/2024 1:43 PM EST Pulse 92 05/20/2024 1:43 PM EST Temperature 36.8 ??C (98.2 ??F) 05/20/2024 1:43 PM ES T Respiratory Rate - - Oxygen Saturation 98% 05/20/2024 1:43 PM EST Inhaled Oxygen Concentration - - Weight 68 kg (150 lb) 11/17/2023 11:02 AM EDT Height 167.6 cm (5' 6 ) 11/17/2023 11:02 AM EDT Body Mass Index 24.21 11/17/2023 11:02 AM EDT Plan of Treatment Health Maintenance Due Date Last Done Comments Hepatitis B Vaccines (2 of 3 - 19+ 3-dose series) 12/26/2016 11/28/2016 DTaP,Tdap,and Td Vaccines (3 - Td or Tdap) 09/27/2018 03/30/2018, 02/09/2011 Depression Screening 03/30/2022 HIV Screening 03/30/2022 Hepatitis C Screening 03/30/2022 Social Influencers of Health Screening 03/30/2022 COVID-19 Vaccine ( season) 2023 Influenza Vaccine (#1) 2023 3, 02/17/2020, 03/07/2019, Additional history exists Colorectal Cancer Screening: Colonoscopy 12/13/2025 12/14/2015 Cholesterol Screening (Lipid Panel) 06/12/2028 06/12/2023 HIB Vaccines Aged Out No longer eligi [...] on patient's age to complete this topic MMR Vaccines Aged Out No longer eligi ble based on patient's age to complete this topic Meningococcal ACWY Vaccine Aged Out N o longer eligible based on patient's age to complete this topic Meningococcal B Vacine Aged Out No lo nger eligible based on patient's age to complete this topic Pneumococcal Vaccine: Pediatrics (0 to 5 Years) and At-Risk Patients (6 to 64 Years) Aged Out No longer eligible based on patient's age to complete this topic RSV Immunization Patients Under 20 months Aged Out No longer eligible based on patient's age to complete this topic Varicella Vaccines Aged Out No longer eligible based on patient's age to complete this topic Procedures Procedure Name Priority Date/Time Associated Diagnosis Comments POC RAPID [id number], MOLECULAR Routine 05/20/2024 1:56 PM EST Symptoms of upper respiratory infection in pediatric patient from Last 3 Months Results * Poc Rapid [id number], MOLECULAR (05/20/2024 1:56 PM EST) COVID-19/SARS- COV-2 Rapid POC Negative Negative Swab Nasopharyngeal structure / Unknown 05/20/2024 1:56 PM EST Cullen Larios NP POINT OF CARE TEST ENTER/EDIT ORDERABLES Final Result from Last 3 Months Insurance [facility] [place] [address] Care Teams Eyeglass Frames Polisher Relationship Specialty Start Date End Date Cameron Gonzalez MD [address] [place] [id number] PCP - General 11/18/22
--- OUTSIDE RECORDS SUMMARY | 2024-06-10 13:05 | XMS_ITS | Encounter Summary ---
Author Organization [facility] Address [address] [place] [address] Care Team Providers Care Clinical Project Manager Name Role Phone Marco Smallwood MD Primary Care Provider [phone] Cameron Gonzalez Primary Care Provider [phone] Reason for Visit * Reason Comments E-prescribe Rx Request Encounter Details Date Type Department Care Team Description 10/02/2020 Refill Adult Medicine [address] [address] Slava Ashley, JEANE [address] [place] [address] E-prescribe Rx Request Social History Tobacco Use Types Packs/Day Years Used Date Smoking Tobacco: Former Cigarettes 2 3 Smokeless Tobacco: Never Comments:quite 15 yrs ago Alcohol Use Standard Drinks/Week Comments Yes 0 (1 standard drink = 0.6 oz pur e alcohol) 3 beers on the weekend Sex Assigned at Date Recorded Male 03/02/2023 10:29 AM EDT Job Start Date Occupation Industry Not on file Not on file Not on file documented as of this encounter Miscellaneous Notes * Telephone Encounter - Kristen Low C.M.A. - 10/02/2020 1:20 PM EDT Vivi 02/17/2020 new appt 11/10/2020 Lab Results Component Value Date NA 140 02/17/2020 K 4.3 02/17/2020 CO2 30 02/17/2020 CL 106 02/17/2020 BUN 19 02/17/2020 CREAT 0.70 02/17/2020 GLU 88 02/17/2020 CA 9.3 02/17/2020 GFR > 60 02/17/2020 Lab Results Component Value Date HGBA1C 6.2 02/17/2020 CHOL 155 02/17/2020 LDL 84 02/17/2020 HDL 44 02/17/2020 TRIG 137 02/17/2020 GLU 88 02/17/2020 CREAT 0.70 02/17/2020 * Telephone Encounter - Minerva Dara - 10/02/2020 10:51 AM EDT Patient would like script to be: E-PRESCRIBED/FAXED TO PHARMACY WHEN WAS THE PATIENT'S LAST APPOINTMENT IN ADULT MEDICINE? 02/17/20 WHEN WAS THE LAST TIME THE PATIENT SAW THEIR PCP? 04/15/19 Does patient have an upcoming appointment? Yes 11/10/20 (THE MEDICATION REQUESTED IS ON THE MED LIST ABOVE) All of the medications requested were on the CURRENT MEDS list Did you check the Pharmacy information above?: YES Patient wants: 30 -day supply Is this a mail order prescription request ? NO If the refill is from a FAXED refill request what is the RX # listed on the fax? N/A Patients current insurance carrier is: Payor: [employer] F[employer] / Plan: [employer]IANCE / Product Type: MEDICAID RISK documented in this encounter Plan of Treatment Not on file documented as of this encounter Visit Diagnoses Diagnosis Excessive sweating Generalized hyperhidrosis documented in this encounter Care Teams Clinical Project Manager Relationship Specialty Start Date End Date Marco Smallwood MD [address] [place] [id number] PCP - General Internal Medicine 08/03/16 11/17/22 Cameron Gonzalez [address] [place] [address] PCP - General Internal Medicine 11/18/22 documented as of this encounter
--- OUTSIDE RECORDS SUMMARY | 2024-06-10 13:05 | XMS_ITS | Encounter Summary ---
Author Organization [facility] Address [address] [place] [address] Care Team Providers Care Supervisor Nutritional Yeast Name Role Phone Marco Smallwood MD Primary Care Provider [phone] Cameron Gonzalez Primary Care Provider [phone] Reason for Visit * Reason Comments E-prescribe Rx Request Encounter Details Date Type Department Care Team Description 04/18/2017 Refill Gastroenterology - [address] [address] Arturo Del Rio PA-C E-prescribe Rx Request Social History Tobacco Use Types Packs/Day Years Used Date Smoking Tobacco: Former Cigarettes 2 3 Smokeless Tobacco: Never Alcohol Use Standard Drinks/Week Comments Yes 0 (1 standard drink = 0.6 oz pur e alcohol) 7 beers on the weekend Sex Assigned at Date Recorded Male 03/02/2023 10:29 AM EDT Job Start Date Occupation Industry Not on file Not on file Not on file documented as of this encounter Miscellaneous Notes * Telephone Encounter - Arturo Del Rio PA-C - 04/18/2017 4:04 PM EST Will refill but pt needs to r/s his missed appt. * Telephone Encounter - Olivia Cisneros C.M.A. - 04/18/2017 3:58 PM EST Please review. documented in this encounter Plan of Treatment Not on file documented as of this encounter Visit Diagnoses Not on filedocumented in this encounter Care Teams Supervisor Nutritional Yeast Relationship Specialty Start Date End Date Marco Smallwood MD [address] [place] [phone] PCP - General Internal Medicine 08/03/16 11/17/22 Cameron Gonzalez [address] [place] [phone] PCP - General Internal Medicine 11/18/22 documented as of this encounter
--- OUTSIDE RECORDS SUMMARY | 2024-06-10 13:05 | XMS_ITS | Encounter Summary ---
Author Organization [facility] Address [address] [place] [address] Care Team Providers Care Chalk Molding Machine Operator Name Role Phone Marco Smallwood MD Primary Care Provider [phone] Cameron Gonzalez Primary Care Provider [phone] Reason for Visit * Reason Comments E-prescribe Rx Request Encounter Details Date Type Department Care Team Description 01/27/2019 Refill Adult Medicine [address] [address] Antonietta Benites PA-C [address] [place] [phone] E-prescribe Rx Request Social History Tobacco Use [...] encounter Miscellaneous Notes * Telephone Encounter - Sarah Hess M.A. - 01/31/2019 8:10 AM EDT Called number and it does not ring, unable to reach letter mailed * Telephone Encounter - Cathy Giordano M.A. - 01/30/2019 8:37 AM EDT Tried to get through to pt, unable to, will try again later * Telephone Encounter - Estelle Ardon M.A. - 01/29/2019 8:30 AM EDT left message to call back, please put call through to [phone] or re-message to b- side if no answer * Telephone Encounter - Sarah Hess M.A. - 01/28/2019 2:27 PM EDT Left message to patient to call office back * Telephone Encounter - Pallavi Sanchez NP - 01/28/2019 2:21 PM EDT Needs appt * Telephone Encounter - Zofia Campbell M.A. - 01/28/2019 2:12 PM EDT Date of last office visit was 03/30/18. Lab Results Component Value Date CHOL 218 09/27/2016 LDL 137 09/27/2016 HDL 39 09/27/2016 TRIG 212 09/27/2016 SGOT 26 03/30/2018 SGPT 30 03/30/2018 Lab Results Component Value Date NA 142 03/30/2018 K 4.4 03/30/2018 CO2 24.4 03/30/2018 CL 104 03/30/2018 BUN 19 03/30/2018 CREAT 0.8 03/30/2018 CA 9.4 03/30/2018 GFR > 60 03/30/2018 * Telephone Encounter - Minerva Diamond - 01/28/2019 2:00 PM EDT Patient would like script to be: E-PRESCRIBED/FAXED TO PHARMACY WHEN WAS THE PATIENT'S LAST APPOINTMENT IN ADULT MEDICINE? 03/30/18 WHEN WAS THE LAST TIME THE PATIENT SAW THEIR PCP? Same as above Does patient have an upcoming appointment? No-unable to reach [facility] call for appointment due to refill request. Appt due (THE MEDICATION REQUESTED IS ON THE MED [...] N/A Patients current insurance carrier is: Payor: [employer] FFS / Plan: [employer] / Product Type: MEDICAID RISK documented in this encounter Plan of Treatment Not on file documented as of this encounter Visit Diagnoses Not on filedocumented in this encounter Care Teams Chalk Molding Machine Operator Relationship Specialty Start Date End Date Marco Smallwood MD [address] [place] [id number] PCP - General Internal Medicine 08/03/16 11/17/22 Cameron Gonzalez [address] [place] [phone] PCP - General Internal Medicine 11/18/22 documented as of this encounter
--- OUTSIDE RECORDS SUMMARY | 2024-06-10 13:05 | XMS_ITS | Encounter Summary ---
Author Organization [facility] Address [address] [place] [address] Care Team Providers Care Putty Remover Name Role Phone Marco Smallwood MD Primary Care Provider [phone] Cameron Gonzalez Primary Care Provider [phone] Encounter Details Date Type Department Care Team Description 06/02/2017 Hospital Medical Records [address] [place] [address] Tomer Buck MD [address] [place] [id number] Social History Tobacco Use Types Packs/Day Years Used Date Smoking Tobacco: Former Cigarettes 2 3 Smokeless Tobacco: Never Comments:quite 2004 Alcohol Use Standard Drinks/Week Comments Yes 0 (1 standard drink = 0.6 oz pur e alcohol) 3 beers on the weekend Sex Assigned at Date Recorded Male 03/02/2023 10:29 AM EDT Job Start Date Occupation Industry Not on file Not on file Not on file documented as of this encounter Plan of Treatment Not on file documented as of this encounter Visit Diagnoses Not on filedocumented in this encounter Care Teams Putty Remover Relationship Specialty Start Date End Date Marco Smallwood MD [address] [place] [address] PCP - General Internal Medicine 08/03/16 11/17/22 Cameron Gonzalez [address] [place] [address] PCP - General Internal Medicine 11/18/22 documented as of this encounter
--- OUTSIDE RECORDS SUMMARY | 2024-06-10 13:05 | XMS_ITS | Encounter Summary ---
Author Organization [facility] Address [address] [place] [address] Care Team Providers Care Glaze Maker Name Role Phone Marco Smallwood MD Primary Care Provider [phone] Cameron Gonzalez Primary Care Provider [phone] Encounter Details Date Type Department Care Team Description 06/29/2021 Refill Adult Medicine [address] [phone] Marco Smallwood MD [address] [place] [phone] Social History Tobacco Use Types Packs/Day Years [...] hyperhidrosis documented in this encounter Care Teams Glaze Maker Relationship Specialty Start Date End Date Marco Smallwood MD [address] [place] [id number] PCP - General Internal Medicine 08/03/16 11/17/22 Cameron Gonzalez [address] [place] [phone] PCP - General Internal Medicine 11/18/22 documented as of this encounter
--- OUTSIDE RECORDS SUMMARY | 2024-06-10 13:05 | XMS_ITS | Encounter Summary ---
Author Organization [facility] Address [address] [place] [address] Care Team Providers Care Fireworks Inspector Name Role Phone Marco Smallwood MD Primary Care Provider [phone] Cameron Gonzalez Primary Care Provider [phone] Encounter Details Date Type Department Care Team Description 02/18/2020 Orders Only Adult Medicine [address] [address] Slava Ashley NP [address] [place] [address] Prediabetes (Primary Dx) Social History Tobacco Use Types Packs/Day Years [...] file Not on file Not on file COVID-19 Exposure Response Date Recorded In the last month, have you been in contact with someone who was confirmed or suspected to have Coronavirus / COVID-19? No / Unsure 02/17/2020 2:38 PM EDT documented as of this encounter Plan of Treatment Scheduled Orders Name Type Priority Associated Diagnoses Orde r Schedule HEMOGLOBIN A1C Lab Routine Prediabetes Expected: 06/20/2020 (Approximate), Expires: 02/17/2021 documented as of this encounter Visit Diagnoses Diagnosis Prediabetes- Primary Other abnormal glucose documented in this encounter Care Teams Fireworks Inspector Relationship Specialty Start Date End Date Marco Smallwood MD [address] [place] [id number] PCP - General Internal Medicine 08/03/16 11/17/22 Cameron Gonzalez [address] [place] [address] PCP - General Internal Medicine 11/18/22 documented as of this encounter
--- OUTSIDE RECORDS SUMMARY | 2024-06-10 13:05 | XMS_ITS | Encounter Summary ---
Author Organization [facility] Address [address] [place] [address] Care Team Providers Care Pomologist Name Role Phone Cameron Gonzalez MD Primary Care Provider [phone] Reason for Visit * Reason Comments Eye Problem sinus Encounter Details Date Type Department Care Team ([facility] st Contact Info) Description 05/20/2024 1:45 PM EST Office Visit Walk-In Clinic - [place] [id number] [place] [id number] Cullen Larios, HOUSE PARENT [address] [place] [address] Symptoms of upper respiratory infection in pediatric patient (Primary Dx) Social History Tobacco Use Types Packs/Day Years Used Date Smoking Tobacco: Former Cigarettes Smokeless Tobacco: Never Alcohol Use Standard Drinks/Week Comments Yes 0 (1 standard drink = 0.6 oz pur e alcohol) Sex and Gender Information Value Date Recorded Sex Assigned at Not on file Legal Sex Male 3:32 PM EST Gender Identity Not on file Sexual Orientation Not on file documented as of this encounter Last Filed Vital Signs Vital Sign Reading Time Taken Comments Blood Pressure 120/80 05/20/2024 1:43 PM EST Pulse 92 05/20/2024 1:43 PM EST Temperature 36.8 ??C (98.2 ??F) 05/20/2024 1:43 PM ES T Respiratory Rate - - Oxygen Saturation 98% 05/20/2024 1:43 PM EST Inhaled Oxygen Concentration - - Weight - - Height - - Body Mass Index - - documented in this encounter Ordered Prescriptions Prescription Sig Dispense Quantity Refills Last Filled Start Date End Date erythromycin 5 mg/gram (0.5 %) ophthalmic ointment Apply to affected eye 4 times a day for 7 days 3.5 g 05/20/2024 documented in this encounter Progress Notes * Cullen Larios NP - 05/20/2024 1:45 PM EST CHIEF COMPLAINT: Eye Problem (sinus) IDENTIFIER: Kvng Ray is a 49 y.o. old male. HPI: Patient presents today complaining of cough for 9 day(s). Cough is not productive of sputum. deniesshortness of breath. denies wheezing. Patient denies fevers. Patient also complains of post nasal drip and sinus and nasal congestion. patient also endorses tender red bump lower eyelid of the left eye. Denies pain to the eye, denies vision change. Denies danette great sensation, floater sensation, curtain sensation. ROS: GENERAL: SEE HPI HEENT: SEE HPI RESPIRATORY: See HPI CARDIOVASCULAR: SEE HPI GI: No abdominal discomfort, blood in stools or black stools PAST MEDICAL HISTORY: Patient Active Problem List Diagnosis Date Noted Prediabetes 02/18/2020 Varicocele 10/06/2016 Hiatal hernia 10/06/2016 Genital warts 10/06/2016 Mixed hyperlipidemia 09/28/2016 GERD (gastroesophageal reflux disease) 09/27/2016 Past Surgical History: Procedure Laterality Date COLONOSCOPY 12/14/2015 PROCEDURE: HISTORICAL COLONOSCOPY; COMMENT: and esophagogastroduodenoscopy Dr. Deyvi Stern SOCIAL HISTORY: Social History Tobacco Use Smoking status: Former Current packs/day: 2.00 Types: Cigarettes Smokeless tobacco: Never Substance Use Topics Alcohol use: Yes FAMILY HISTORY: Family History Problem Relation Name Age of Onset Diabetes Mother HTN Other (Other: heart problem) Maternal Grandmother Other (Other: leukemia) Uncle Asthma Sister Family Status Relation Name Status Mother (Not Specified) MGM (Not Specified) Uncle (Not Specified) Sister (Not Specified) No partnership data on file MEDICATIONS DISCONTINUED/REORDERED: There are no discontinued medications. ACTIVE MEDICATIONS: No outpatient medications have been marked as taking for the 05/20/24 encounter (Office Visit) with Cullen Larios NP. ALLERGIES: No Known Allergies PHYSICAL EXAM: Vitals: 05/20/24 1343 BP: 120/80 Pulse: 92 Temp: 36.8 ??C (98.2 ??F) SpO2: 98% APPEARANCE: Alert and in no acute distress EYES: PERRL, conjunctiva and sclera normal. Lower eyelid with hordeolum with no discharge. No preseptal cellulitis EARS: External ears normal. Canals clear. TMs normal. NOSE/SINUS: Nares normal. Septum midline. Mucosa boggy with congestion. Turbinates with erythema. No drainage. No sinus tenderness. MOUTH/THROAT: mild erythema post pharangeal wall with PND noted and no exudates present NECK: negative HEART: RRR with normal S1 and S2, no murmurs, no gallops, no JVD appreciated LUNG: Clear to auscultation LYMPH NODES: grossly normal NEURO: Awake, alert and oriented x 3 LABS/IMAGING: Chest xray was not ordered COVID Test- negative IMPRESSION: No diagnosis found. PLAN: The patient's PMH, problem list and medications were reviewed in reference to the above diagnosis/diagnoses. *. Based on History, ROS, HPI and PE, covid test performed (negative). *. Based on HPI, ROS and PE, suggestive of viral URI. Patient also has hordeolum internum of the lower eyelid with no preseptal cellulitis. *. Prescribed erythromycin ointment. Proper dosing and method to take medication addressed with patient. The risks and benefits of this medication were discussed with the patient. The patient understands the potential side effects and basic interactions of this medication. The patient is asked to call me or my colleagues if they begin to experience any difficulties with this medication. *. Educated pt to rest,proper hydration, warm steamy showers *. Advised to follow up with PCP in 14 days, if symptoms are not improving. Advised to follow up with PCP immediately for new or worsening symptoms. *. Discussed warnings signs and symptoms that would require immediate follow up at UC/ER. Patient verbalized understanding and agreement with the plan. Cullen Larios NP on 05/20/2024 at 1:50 PM EST Today's documentation was made using voice recognition software. This note may contain grammatical errors secondary to this software. documented in this encounter Plan of Treatment Not on file documented as of this encounter Procedures Procedure Name Priority Date/Time Associated Diagnosis Comments POC RAPID [id number], MOLECULAR Routine 05/20/2024 1:56 PM EST Symptoms of upper respiratory infection in pediatric patient documented in this encounter Results * Poc Rapid [id number], MOLECULAR (05/20/2024 1:56 PM EST) COVID-19/SARS- COV-2 Rapid POC Negative Negative Swab Nasopharyngeal structure / Unknown 05/20/2024 1:56 PM EST Cullen Larios HOUSE PARENT POINT OF CARE TEST ENTER/EDIT ORDERABLES Final Result documented in this encounter Visit Diagnoses Diagnosis Symptoms of upper respiratory infection in pediatric patient- Primary documented in this encounter Care Teams Pomologist Relationship Specialty Start Date End Date Cameron Gonzalez MD [address] [place] [id number] PCP - General 11/18/22 documented as of this encounter
--- OUTSIDE RECORDS SUMMARY | 2024-06-10 13:05 | XMS_ITS | Encounter Summary ---
Author Organization [facility] Address [address] [place] [address] Care Team Providers Care Hybrid Car Mechanic Name Role Phone Marco Smallwood MD Primary Care Provider [phone] Cameron Gonzalez Primary Care Provider [phone] Reason for Visit * Reason Onset Date Comments APPOINTMENT 10/08/2020 Encounter Details Date Type Department Care Team Description 10/08/2020 Telephone Adult Medicine [address] [address] Luis Gomez PA-C APPOINTMENT Social History Tobacco Use Types Packs/Day Years [...] encounter Miscellaneous Notes * Telephone Encounter - Luis Gomez PA-C - 10/08/2020 9:57 AM EDT Sent video link x4 and no answer or response. Patient will need to reschedule with care team. documented in this encounter Plan of Treatment Not on file documented as of this encounter Visit Diagnoses Not on filedocumented in this encounter Care Teams Hybrid Car Mechanic Relationship Specialty Start Date End Date Marco Smallwood MD [address] [place] [id number] PCP - General Internal Medicine 08/03/16 11/17/22 Cameron Gonzalez [address] [place] [id number] PCP - General Internal Medicine 11/18/22 documented as of this encounter
--- NOTE | 2024-06-10 13:07 | P.CONAN_ITS ---
[facility] Active Problems Active Problems: All Active Problems Vasectomy evaluation (Acute) Anxiety about health (Acute) Elevated PSA (Acute) Epididymal cyst (Acute) Nocturia (Acute) Spermatocele of epididymis, multiple (Acute) Hydrocele (Acute) Scrotal pain (Acute) Past Medical History Medical History GERD (gastroesophageal reflux disease) Spermatocele of epididymis, multiple Nocturia Family History Family History Maternal Uncle Leukemia Family history of problems with anesthesia: No Surgical History Surgical History No pertinent past surgical history History of Problems with Anesthesia: No Social History Social History Substance Use Type: Marijuana Advance Directives: No Advance Directives Information Provided: Yes Meds Allergies Allergy/AdvReac Type Severity Reaction Status Date / Time No Known Allergies Allergy Verified 06/10/24 11:55 Active Medications: Current Medications Lactated Ringer's (Lr) 1,000 mls @ 100 mls/hr IVCONT .Q10H GIUSEPPE Last Admin: 06/10/24 12:11 Dose: 100 mls/hr Home Medications ?Medication ?Instructions ?Recorded ?Confirmed ?Last Taken ?Type omeprazole 20 mg capsule,delayed 20 mg PO DAILY 10/07/21 06/06/24 Unknown History release Exam Height,Weight and Vital Signs: Height 5 ft 6 in Weight 68 kg Last Vital Signs Temp 98.2 F 06/10/24 12:18 Pulse 85 06/10/24 12:18 Resp 18 06/10/24 12:18 BP 132/90 H 06/10/24 12:18 Pulse Ox 98 06/10/24 12:18 O2 Del Method Room Air 06/10/24 12:18 Airway Mallampati Class: II TM Dist: >3cm Neck ROM: Full Loose/Missing/Broken Teeth: Upper Heart: RRR Lungs: CTA Assessment and Plan Assessment Anesthesia Assessment: Anesthesia Plan Discussed and Chart Reviewed Final Anesthetic Review Family History of Problems with Anesthesia: No History of Problems with Anesthesia: No NPO: Yes ASA Class: II Final Preanesthetic Review: Meds/Allgs Chart Reviewed, Consent Obtained/Reviewed and Anes Risks/Benef Reviewed Patient Risk: Low Procedure Risk: Low Anesthetic Plan Anesthetic Plan: GA Disposition: Standard PACU
--- NOTE | 2024-06-10 13:36 | MHC.SHP ---
Pre-Procedural Eval Section A - 24 Hr Update-Section A only Date of Service: 06/10/24 The patient is an INPATIENT: No Changes since office visit: No Cold of Flu in the past 2 weeks, No New Medical Problems, No Changes in Medication and No Patient answered all questions The patient has been examined within 24 hours of the surgical procedure. The History & Physical has been completed within 30 days and I have reviewed it.: Yes Section B - Complete if H&P > 30 days Chief Complaint: Spermatocele of epididymis,sterilization Details of Present Illness: Bilateral spermatocele repair with vasectomy Relevant Social History: None Present Medications: see Short Stay Collaborative assessment Medical History: No relevant PMH History of Previous Operations: Relevant previous surgery/procedure and date(s) Allergies: Allergies Allergy/AdvReac Type Severity Reaction Status Date / Time No Known Allergies Allergy Verified 06/10/24 11:55 Review of Systems Sugical H&P ROS: Negative: Constitution, Cardiovascular, Respiratory, Neurological, Psychiatric, Hem-Onc, Allergic/Immunologic, Gastrointestinal, Genitourinary, Musculoskeletal, Integumentary, Endocrine and Eyes/Ears/Nose/Throat Exam Surgical H&P Exam: Normal: HEENT, Normal: Heart, Normal: Lungs, Normal: Extremities, Normal: Abdomen, Normal: Skin and Normal: Neurological Plan Diagnosis/Plan: Unchanged I have reviewed the history and physical and performed a pertinent physical examination on my patient. No changes have occurred unless specified. Time Spent With Patient Time: Total time managing care of this patient today ____ minutes.
--- NOTE | 2024-06-10 15:13 | W.PM.OPN ---
Operative Note Operative Note Date of Service: 06/10/24 Narrative: PreOperative Diagnosis: Bilateral Spermatocele and anxiety about health Post Operative Diagnosis: Bilateral Spermatocele and anxiety about health Procedure: Bilateral Spermatocelectomy with vasectomy Surgeon: Dr Jarred Rajput Anesthesia: General Indications for procedure: Bilateral Spermatocele with persistent discomfort and anxiety about health regarding reproduction Procedure: After informed consent was verified the patient was brought to the operating room and placed in a supine position. Anesthesia was administered per protocol. Patient was appropriately shaved and genitals were prepped and draped in sterile fashion. Safety pause time-out was performed. Antibiotics being given. Local anesthetic was infiltrated under the skin in a vertical fashion on the scrotum. Skin incision was made using a blade through the subdermal layer. The tunica around the left testicle was elevated and dissected free from surrounding tissue. A small incision was made through the tunic. Edges were held using Allis clamps. Fluid was removed. The testicle was delivered from the tunic. The spermatocele was seen within the epididymis of the testicle. It was approximately 5 cm long by 2 cm wide. Using Bovie cautery spermatocele was carefully dissected free from attachments to the upper pole of the testicle and the epididymis. Once free the stalk of the spermatocele was identified and cauterized. Fluid was removed from the spermatocele and the empty spermatocele sac was removed. Small accessory appendices were removed from the head of epididymis. The vas was isolated within the spermatic cord. Using the cautery fascia was opened. The cord was elevated using a vas clamp. The cord was partially divided and the Bovie inserted and the proximal end was cauterized. This was released into the fascia. A segment of proximally 1.5 cm was removed. The testicle was placed back within tunica inside the scrotum. The tunica was closed using a running 3-0 Vicryl suture. Overlying tissue was reapproximated using a running 3-0 Vicryl suture. The tunica around the right testicle was elevated and dissected free from surrounding tissue. A small incision was made through the tunic. Edges were held using Allis clamps. Fluid was removed. The testicle was delivered from the tunic. The spermatocele was seen within the epididymis of the testicle. It was approximately 3 cm long by 1 cm wide. Using Bovie cautery spermatocele was carefully dissected free from attachments to the upper pole of the testicle and the epididymis. Once free the stalk of the spermatocele was identified and cauterized. Fluid was removed from the spermatocele and the empty spermatocele sac was removed. Small accessory appendices were removed from the head of epididymis. The vas was isolated within the spermatic cord. Using the cautery fascia was opened. The cord was elevated using a vas clamp. The cord was partially divided and the Bovie inserted and the proximal end was cauterized. This was released into the fascia. A segment of proximally 1.5 cm was removed. The testicle was placed back within tunica inside the scrotum. The tunica was closed using a running 3-0 Vicryl suture. Overlying tissue was reapproximated using a running 3-0 Vicryl suture. Skin was closed with interrupted 4-0 chromic sutures. Soft fluff sponges were placed with mesh pants as dressing. Local anesthetic was placed in inguinal cord for post procedure pain relief. Patient tolerated procedure well was extubated in operating room transferred in stable condition to the recovery area Pathology: Spermatocele sac bilateral Vas segments Drains: []
[2024-06-10] MEDS: Acetaminophen 1,000 MG/100 ML PIGGYBACK 400 MG IV (15:26)
[2024-06-10] MEDS: oxyCODONE HCl Immed Release 5 MG TABLET PO (15:30)
== END 2024-06-10 16:24 | disposition home or self-care (01) ==
PROVIDERS: PCP Internal Medicine; Visit Provider Urology
PROC: (CPT 54840; principal; 2024-06-10 13:40)
PROC: (CPT 55250; 2024-06-10 13:40)
DX: N43.42 Spermatocele of epididymis, multiple (principal); Z30.2 Encounter for sterilization; F41.8 Other specified anxiety disorders; R45.89 Other symptoms and signs involving emotional state; N50.82 Scrotal pain; N43.2 Other hydrocele; R97.20 Elevated prostate specific antigen [PSA]; R35.1 Nocturia; Z79.899 Other long term (current) drug therapy
CPT/HCPCS: 54840; 55250; 88302; 88304; J0131; J0690; J1100; J1885; J2003; J2250; J2405; J2704; J2795; J3010

== ENCOUNTER → 2024-06-10 11:46 | Outpatient (BNV) | payer OTHER, SELFPAY | PROVIDERS: PCP Internal Medicine; Visit Provider Urology | DX: Z30.2 Encounter for sterilization (principal); N43.42 Spermatocele of epididymis, multiple | CPT/HCPCS: 54840; 55250 ==

== ENCOUNTER 2024-06-19 15:17 | Outpatient (AMB) | payer MEDICAID, SELFPAY ==
--- NOTE | 2024-06-19 15:20 | A.OFFVIS_ITS ---
Intake Visit Reasons: Testicular Swelling Intake Note: Patient is present for TESTICULAR SWELLING Urology Medication:NONE Antibiotic Allergy:NONE Blood Thinner:NONE TODAY'S PVR:52ML'S Research And Development Engineer Required: No Allergies No Known Allergies Allergy (Verified 06/19/24 15:21) HPI Comments Details: Kvng is a pleasant 49-year-old male. He is seen for the following urologic issues - bilateral spermatocele Recently performed bilateral spermatocelectomy and vasectomy Presents with swelling Reassurance provided Recommendation for supportive underwear Translation provided by his who was comfortable in his room Keep planned follow-up [facility] Medical History GERD (gastroesophageal reflux disease) Spermatocele of epididymis, multiple Nocturia Surgical History No pertinent past surgical history Family History Maternal Uncle Leukemia Social History Are you a primary summer child caregiver to a significant other at home: No Do you presently have visiting nurse or other home services: No Patient Tobacco Use Status: Former Tobacco user Substance Use Type: Marijuana Review of Systems Const Denies chills and Denies fever(s) Card Reports no additional complaints and Denies syncope Resp Denies cough GI Denies abdominal pain and Denies heartburn Reports as per HPI and Denies change in libido Neuro Denies syncope Psych Denies change in libido Endo Denies change in libido Physical Exam Const General: cooperative, healthy appearing, comfortable and no acute distress Orientation/consciousness: patient oriented x3 HEENT Face and sinus: Yes normal facial exam Mouth: moist mucous membranes Neck Neck: Yes normal visual inspection, Yes full ROM and Yes trachea midline Chest Chest palpation & inspection: normal inspection of the chest Resp Effort & Inspection: normal respiratory effort, able to speak in complete sentences and no respiratory distress GI Inspection: Yes normal to inspection Back/Spine/Pelvis Cervical Spine: normal cervical lordosis Thoracic/Lumbar Spine: thoracic and lumbar spine normal to inspection Skin General skin exam: no rashes or lesions noted Neuro General: patient oriented x3, gait normal, tone normal and moves all extremities Extrem General: Yes normal to inspection and Yes capillary refill normal Office Procedures Post Void Residual Post Residual Void Post Void Residual (PVR): 52 24984-Snti Void Residual by ultrasound Results AMB Urinalysis, Automated UA Leukoctes 0 Андрей/uL Last Edit by LEW Hewitt on 06/19/24 15:47 UA Nitrite Negative Last Edit by Chris Willis [facility] on 06/19/24 15:47 UA Urobilinogen 3.5 mg/dL Last Edit by Chris Willis [facility] on 06/19/24 15:4 7 UA Protein 15 mg/dL Last Edit by Chris iWllis [facility] on 06/19/24 15:47 UA pH 5.5 Last Edit by Chris Willis [facility] on 06/19/24 15:47 UA Blood 0 Oneil/uL Last Edit by Chris Willis [facility] on 06/19/24 15:47 UA Specific [place] 1.030 Last Edit by Chris Willis [facility] on 06/19/24 15: 47 UA Ketone Negative Last Edit by Chris Willis [facility] on 06/19/24 15:47 UA Bilirubin 0 mg/dL Last Edit by Chris Willis [facility] on 06/19/24 15:47 UA Glucose 0 mg/dL Last Edit by Chris Willis [facility] on 06/19/24 15:47 Assessment & Plan Assessment & Plan (1) Scrotal swelling: Code(s): N50.89 - Other specified disorders of the male genital organs Category: Medical Plan Supportive underwent Keep follow-up Orders: Orders AMB Urinalysis Automated Today Z13.9 - Encounter for screening, unspecified Patient Instructions: This note is constructed using voice recognition software. While every effort has been made to ensure accuracy preschool assistant errors may have been included. Imaging studies, laboratory and physical exam results were discussed and reviewed in detail. No major barriers to patient understanding were identified. An opportunity to ask questions regarding the treatment plan was provided. All questions were answered. The patient expressed understanding and agreement with the above treatment plan. The patient is aware they should contact our office by phone for worsening of their current condition or the appearance of new urologic symptoms. Compliance is encouraged with any medications and followup testing that is ordered. It is a privilege to participate in the urologic care of your patient. If you have any questions or concerns regarding treatment for the above conditions, or other urologic issues, please do not hesitate to contact me. The office telephone contact is [phone]. Sincerely, Dr Jarred Rajput MD, [facility] - Urology Compassionate Specialist Care for the Genitourinary System Coding Level of Care Code Global (42927) Diagnoses Scrotal swelling N50.89 CPT Codes Post Residual Void - PVR CPT Code: 82556-[place] Void Residual by ultrasound ([id number])
--- OUTSIDE RECORDS SUMMARY | 2024-06-19 15:21 | XMS_ITS | Clinical Summary ---
Author Organization [address] Address [address] [place] [phone] Phone Care Team Providers Care Methane Gas Collection System Operator Name Role Phone Cameron Gonzalez MD Primary Care Provider [phone] Allergies No known active allergies Medications carbamide [...] for 7 days 3.5 g 5 Active acetaminophen (TYLENOL 8 HOUR) 650 mg 8 hr tablet TAKE 1 TABLET BY MOUTH EVERY 8 HOURS NEEDED FOR PAIN 60 tablet 5 Active Active Problems Problem Noted Date Diagnosed Date Prediabetes 02/18/2020 Varicocele 10/06/2016 Overview (06/16/2023): Testicular discomfort intermittent, significant pain when present. 2011 Hiatal hernia 10/06/2016 Overview (06/16/2023): Mild reducible 2011 Genital warts 10/06/2016 Mixed hyperlipidemia 09/28/2016 GERD (gastroesophageal reflux disease) 7 Encounters Date Type Department Care Team Description 05/20/2024 1:45 PM EST Office Visit Walk[facility]In Clinic [address] [address] Cullen Larios, TAX STAFF ACCOUNTANT Symptoms of upper respiratory infection in pediatric patient (Primary Dx) from Last 3 Months Immunizations Name Administration Dates Next Due Hepatitis B (Rldgbqd-E-Divxt , Recombivax HB-Adult) 19yo and older 11/28/2016 [...] Testicular discomfort intermittent, significant pain when present. 2012 Family History Medical History Relation Name Comments [...] 3 - 19+ 3-dose series) 12/26/2016 11/28/2016 Depression Screening 03/30/2022 HIV Screening 03/30/2022 Hepatitis C Screening 03/30/2022 Social Influencers of Health Screening 03/30/2022 COVID-19 Vaccine ( season) 2023 Influenza Vaccine (#1) 2023 , 02/17/2020, 03/07/2019, Additional history exists Colorectal Cancer Screening: Colonoscopy 12/13/2025 12/14/2015 DTaP,Tdap,and Td Vaccines (3 - Td or Tdap) 03/30/2028 03/30/2018, 02/09/2011 Cholesterol Screening (Lipid Panel) 06/12/2028 06/12/2023 HIB [...] Priority Date/Time Associated Diagnosis Comments POC RAPID [id number], MOLECULAR Routine 05/20/2024 1:56 PM EST Symptoms of upper respiratory infection in pediatric patient from Last 3 Months Results * Poc Rapid [id number], MOLECULAR (05/20/2024 1:56 PM EST) COVID-19/SARS- COV-2 Rapid POC Negative Negative Swab Nasopharyngeal structure / Unknown 05/20/2024 1:56 PM EST Cullen Larios NP POINT OF CARE TEST ENTER/EDIT ORDERABLES Final Result from Last 3 Months Insurance [facility] Care Teams Methane Gas Collection System Operator Relationship Specialty Start Date End Date Cameron Gonzalez MD [address] [place] [id number] PCP - General 11/18/22
--- OUTSIDE RECORDS SUMMARY | 2024-06-19 15:21 | XMS_ITS | Clinical Summary ---
Author Organization [employer] Address [address] [place] [address] [address] [place] [address] Care Team Providers Care Us Marketing Director Name Role Phone Unavailable Primary Care Provider [...] patient's age to complete this topic Insurance [facility] [id number] [place]
--- OUTSIDE RECORDS SUMMARY | 2024-06-19 15:21 | XMS_ITS | Encounter Summary ---
Author Organization [employer] Address [address] [place] [address] Care Team Providers Care Glost Placer Name Role Phone Unavailable Primary Care Provider Unavailabl e Reason for Visit * Reason Onset Date Comments Med Refill 03/07/2023 Encounter Details Date Type Department Care Team (Late st Contact Info) Description 03/07/2023 Refill [facility] [address] [place] [address] Krzysztof Smith MD [address] [place] [address] Cyst of epididymis determined by ultrasound Social [...]
--- OUTSIDE RECORDS SUMMARY | 2024-06-19 15:21 | XMS_ITS | Encounter Summary ---
Author Organization [facility] Address [address] [place] [address] Care Team Providers Care Loader Operator Supervisor Name Role Phone Cameron Gonzalez MD Primary Care Provider [phone] Reason for Visit * Reason Comments Eye Problem sinus Encounter Details Date Type Department Care Team ([facility] st Contact Info) Description 05/20/2024 1:45 PM EST Office Visit Walk-[facility] - [place] [id number] [place] [id number] Cullen Larios, SALESPERSON NEW CARS [address] [place] [address] Symptoms of upper respiratory infection in pediatric [...] Priority Date/Time Associated Diagnosis Comments POC RAPID [id number], MOLECULAR Routine 05/20/2024 1:56 PM EST Symptoms of upper respiratory infection in pediatric patient documented in this encounter Results * Poc Rapid [id number], MOLECULAR (05/20/2024 1:56 PM EST) COVID-19/SARS- COV-2 Rapid POC Negative Negative Swab Nasopharyngeal structure / Unknown 05/20/2024 1:56 PM EST Cullen Larios SALESPERSON NEW CARS POINT OF CARE TEST ENTER/EDIT ORDERABLES Final Result documented in this encounter Visit Diagnoses Diagnosis Symptoms of upper respiratory infection in pediatric patient- Primary documented in this encounter Care Teams Loader Operator Supervisor Relationship Specialty Start Date End Date Cameron Gonzalez MD [address] [place] [address] PCP - General 11/18/22 documented as of this encounter
--- OUTSIDE RECORDS SUMMARY | 2024-06-19 15:21 | XMS_ITS | Encounter Summary ---
Author Organization [employer] Address [address] [place] [address] 7t [place] [address] Care Team Providers Care Plastic Top Assembler Name Role Phone Unavailable Primary Care Provider Unavailabl e Reason for Visit * Reason Onset Date Comments New Patient Appt 12/01/2022 Encounter Details Date Type Department Care Team (Late st Contact Info) Description 12/01/2022 Telephone [facility] [address] [place] [address] Alvaro Westfall MD [address] [place] [address] New Patient Appt Social History Tobacco Use [...] EDT FIORELLA Hernandez Called Pt to Offer SHOE SALESMAN Appt, could not reach pt due to phone being out of service . documented in this encounter Plan of Treatment Not on file documented as of this encounter Visit Diagnoses Not on filedocumented in this encounter
== END 2024-06-19 15:45 | disposition home or self-care (01) ==
PROVIDERS: PCP Internal Medicine; Visit Provider Urology
DX: N50.89 Other specified disorders of the male genital organs (principal); Z13.9 Encounter for screening, unspecified
CPT/HCPCS: 99024

== ENCOUNTER → 2024-06-19 15:17 | Outpatient (BNVA) | payer SELFPAY | PROVIDERS: PCP Internal Medicine; Visit Provider Urology | DX: N50.89 Other specified disorders of the male genital organs (principal); Z98.52 Vasectomy status | CPT/HCPCS: 51798; 81003; 99212 ==

== ENCOUNTER 2024-07-02 13:02 | Outpatient (AMB) | payer OTHER, SELFPAY ==
--- NOTE | 2024-07-02 13:27 | A.OFFVIS_ITS ---
Intake Visit Reasons: Excision Spermatocele- follow up(SET) Intake Note: Patient is present for excision follow up Urology Medication:NONE Antibiotic Allergy:NONE Blood Thinner:NONE Monorail Operator Required: No Allergies No Known Allergies Allergy (Verified 07/02/24 13:31) HPI Comments Details: Kvng is a pleasant 49-year-old male. He is seen for the following urologic issues - bilateral spermatocele Follow-up from bilateral spermatocelectomy Has swelling but pain is decreased He can return to work Two month follow-up office [facility] Medical History GERD (gastroesophageal reflux disease) Spermatocele of epididymis, multiple Nocturia Surgical History No pertinent past surgical history Family History Maternal Uncle Leukemia Social History Are you a primary care nurse rn to a significant other at home: No Do you presently have visiting nurse or other home services: No Patient Tobacco Use Status: Former Tobacco user Substance Use Type: Marijuana Review of Systems Const Denies chills and Denies fever(s) Card Reports no additional complaints and Denies syncope Resp Denies cough GI Denies abdominal pain and Denies heartburn Reports as per HPI and Denies change in libido Neuro Denies syncope Psych Denies change in libido Endo Denies change in libido Physical Exam Const General: cooperative, healthy appearing, comfortable and no acute distress Orientation/consciousness: patient oriented x3 HEENT Face and sinus: Yes normal facial exam Mouth: moist mucous membranes Neck Neck: Yes normal visual inspection, Yes full ROM and Yes trachea midline Chest Chest palpation & inspection: normal inspection of the chest Resp Effort & Inspection: normal respiratory effort, able to speak in complete sentences and no respiratory distress GI Inspection: Yes normal to inspection Back/Spine/Pelvis Cervical Spine: normal cervical lordosis Thoracic/Lumbar Spine: thoracic and lumbar spine normal to inspection Skin General skin exam: no rashes or lesions noted Neuro General: patient oriented x3, gait normal, tone normal and moves all extremities Extrem General: Yes normal to inspection and Yes capillary refill normal Assessment & Plan Assessment & Plan (1) Spermatocele of epididymis, multiple: Code(s): N43.42 - Spermatocele of epididymis, multiple Category: Medical Plan Two month follow-up office Patient Instructions: This note is constructed using voice recognition software. While every effort has been made to ensure accuracy hhas errors may have been included. Imaging studies, laboratory and physical exam results were discussed and reviewed in detail. No major barriers to patient understanding were identified. An opportunity to ask questions regarding the treatment plan was provided. All questions were answered. The patient expressed understanding and agreement with the above treatment plan. The patient is aware they should contact our office by phone for worsening of their current condition or the appearance of new urologic symptoms. Compliance is encouraged with any medications and followup testing that is ordered. It is a privilege to participate in the urologic care of your patient. If you have any questions or concerns regarding treatment for the above conditions, or other urologic issues, please do not hesitate to contact me. The office telephone contact is [phone]. Sincerely, Dr Jarred Rajput MD, [facility] - Urology Compassionate Specialist Care for the Genitourinary System Coding Level of Care Code Global (02227) Diagnoses Spermatocele of epididymis, multiple N43.42
--- OUTSIDE RECORDS SUMMARY | 2024-07-02 16:13 | XMS_ITS | Clinical Summary ---
Author Organization [employer] Address [address] [place] [address] 7t [place] [address] Care Team Providers Care Upholsterer Outside Name Role Phone Unavailable Primary Care Provider [...] patient's age to complete this topic Insurance [facility] C[address] [place] [place]
--- OUTSIDE RECORDS SUMMARY | 2024-07-02 16:13 | XMS_ITS | Encounter Summary ---
Author Organization [employer] Address [address] 7[address] [place] [address] Care Team Providers Care Front Office Help Name Role Phone Unavailable Primary Care Provider Unavailabl e Reason for Visit * Reason Onset Date Comments Med Refill 03/07/2023 Encounter Details Date Type Department Care Team (Late st Contact Info) Description 03/07/2023 Refill [facility] [address] [place] [address] Krzysztof Smith MD [address] [place] [address] Cyst of epididymis determined by ultrasound Social [...]
--- OUTSIDE RECORDS SUMMARY | 2024-07-02 16:13 | XMS_ITS | Clinical Summary ---
Author Organization [address] Address [address] [place] [phone] Phone Care Team Providers Care Physical Chemistry Teacher Name Role Phone Cameron Gonzalez MD Primary Care Provider [phone] Allergies No known active allergies Medications carbamide [...] 1:45 PM EST Office Visit [facility] [address] [address] Cullen aLrios, VESSEL MASTER Symptoms of upper respiratory infection in pediatric patient (Primary Dx) from Last 3 Months Immunizations Name Administration Dates Next Due Hepatitis B (Fugrkob-X-Gqmyu , Recombivax HB-Adult) 19yo and older 11/28/2016 [...] Priority Date/Time Associated Diagnosis Comments POC RAPID [id number], MOLECULAR Routine 05/20/2024 1:56 PM EST Symptoms of upper respiratory infection in pediatric patient from Last 3 Months Results * Poc Rapid [id number], MOLECULAR (05/20/2024 1:56 PM EST) COVID-19/SARS- COV-2 Rapid POC Negative Negative Swab Nasopharyngeal structure / Unknown 05/20/2024 1:56 PM EST Cullen Larios NP POINT OF CARE TEST ENTER/EDIT ORDERABLES Final Result from Last [address] [facility] Care Teams Physical Chemistry Teacher Relationship Specialty Start Date End Date Cameron Gonzalez MD [address] [place] [phone] PCP - General 11/18/22
--- OUTSIDE RECORDS SUMMARY | 2024-07-02 16:13 | XMS_ITS | Encounter Summary ---
Author Organization [employer] Address [address] [place] [address] 7t [place] [address] Care Team Providers Care Steel Roller Name Role Phone Unavailable Primary Care Provider Unavailabl e Reason for Visit * Reason Onset Date Comments New Patient Appt 12/01/2022 Encounter Details Date Type Department Care Team (Late st Contact Info) Description 12/01/2022 Telephone [facility] [address] [place] [address] Alvaro Westfall MD [address] [place] [address] New Patient Appt Social History Tobacco Use [...] EDT FIORELLA Hernandez Called Pt to Offer BOX MAKER WOOD Appt, could not reach pt due to phone being out of service . documented in this encounter Plan of Treatment Not on file documented as of this encounter Visit Diagnoses Not on filedocumented in this encounter
== END 2024-07-02 13:50 | disposition home or self-care (01) ==
PROVIDERS: PCP Internal Medicine; Visit Provider Urology
DX: N43.42 Spermatocele of epididymis, multiple (principal)
CPT/HCPCS: 99024

== ENCOUNTER → 2024-07-02 13:02 | Outpatient (BNVA) | payer OTHER, SELFPAY | PROVIDERS: PCP Internal Medicine; Visit Provider Urology | DX: N43.42 Spermatocele of epididymis, multiple (principal) | CPT/HCPCS: 99212 ==

== ENCOUNTER 2024-09-03 14:54 | Outpatient (AMB) | payer OTHER, SELFPAY ==
--- NOTE | 2024-09-03 15:01 | A.OFFVIS_ITS ---
Intake Visit Reasons: 2M follow up Intake Note: Patient is present for 2M F/U Urology Medication:NONE Antibiotic Allergy:NONE Blood Thinner:NONE Qa Specialist Required: No Allergies No Known Allergies Allergy (Verified 09/03/24 15:01) HPI Comments Details: Kvng is a pleasant 49-year-old male. 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 Interfering with ability to work Recommend repeat left spermatocelectomy PFSH Medical History GERD (gastroesophageal reflux disease) Spermatocele of epididymis, multiple Nocturia Surgical History No pertinent past surgical history Family History Maternal Uncle Leukemia Social History Are you a primary special needs child caregiver to a significant other at home: No Do you presently have visiting nurse or other home services: No Patient Tobacco Use Status: Former Tobacco user Substance Use Type: Marijuana Review of Systems Const Denies chills and Denies fever(s) Card Reports no additional complaints and Denies syncope Resp Denies cough GI Denies abdominal pain and Denies heartburn Reports as per HPI and Denies change in libido Neuro Denies syncope Psych Denies change in libido Endo Denies change in libido Physical Exam Const General: cooperative, healthy appearing, comfortable and no acute distress Orientation/consciousness: patient oriented x3 HEENT Face and sinus: Yes normal facial exam Mouth: moist mucous membranes Neck Neck: Yes normal visual inspection, Yes full ROM and Yes trachea midline Chest Chest palpation & inspection: normal inspection of the chest Resp Effort & Inspection: normal respiratory effort, able to speak in complete sentences and no respiratory distress GI Inspection: Yes normal to inspection Back/Spine/Pelvis Cervical Spine: normal cervical lordosis Thoracic/Lumbar Spine: thoracic and lumbar spine normal to inspection Skin General skin exam: no rashes or lesions noted Neuro General: patient oriented x3, gait normal, tone normal and moves all extremities Extrem General: Yes normal to inspection and Yes capillary refill normal Results AMB Urinalysis, Automated UA Leukoctes 0 Андрей/uL Last Edit by LEW Hewitt on 09/03/24 16:18 UA Nitrite Negative Last Edit by Chris Willis [facility] on 09/03/24 16:18 UA Urobilinogen 0.2 mg/dL Last Edit by Chris Willis [facility] on 09/03/24 16:1 8 UA Protein 15 mg/dL Last Edit by Chris Willis [facility] on 09/03/24 16:18 UA pH 6.5 Last Edit by Chris Willis [facility] on 09/03/24 16:18 UA Blood 10 Oneil/uL Last Edit by Chris Willis [facility] on 09/03/24 16:18 UA Specific [place] 1.020 Last Edit by Chris Willis [facility] on 09/03/24 16: 18 UA Ketone Negative Last Edit by Chris Willis [facility] on 09/03/24 16:18 UA Bilirubin 0 mg/dL Last Edit by Chris Willis [facility] on 09/03/24 16:18 UA Glucose 0 mg/dL Last Edit by Chris Willis [facility] on 09/03/24 16:18 Assessment & Plan Assessment & Plan (1) Spermatocele of epididymis, multiple: Code(s): N43.42 - Spermatocele of epididymis, multiple Category: Medical Plan Risks, benefits and alternatives to therapy were discussed. These include but are not limited to infection, bleeding, damage to local organs and tissues, need for further interventions. Anesthetic risks regarding cardiac arrhythmia, blood clots, and potential mortality were discussed. The patient understands the typical recovery time and the outpatient nature of the procedure. After consideration of these risks the patient gives full in formed consent and they wish to move ahead with the procedure. Left spermatocelectomy Orders: Orders AMB Urinalysis Automated Today Z13.9 - Encounter for screening, unspecified Patient Instructions: This note is constructed using voice recognition software. While every effort has been made to ensure accuracy manager voice errors may have been included. Imaging studies, laboratory and physical exam results were discussed and revi ewed in detail. No major barriers to patient understanding were identified. An opportunity to ask questions regarding the treatment plan was provided. All questions were answered. The patient expressed understanding and agreement with the above treatment plan. The patient is aware they should contact our office by phone for worsening of their current condition or the appearance of new urologic symptoms. Compliance is encouraged with any medications and followup testing that is ordered. It is a privilege to participate in the urologic care of your patient. If you have any questions or concerns regarding treatment for the above conditions, or other urologic issues, please do not hesitate to contact me. The office telephone contact is [phone]. Sincerely, Dr Jarred Rajput MD, [facility] - Urology Compassionate Specialist Care for the Genitourinary System Coding Level of Care Code Est Pt Level 4 (36313) Diagnoses Spermatocele of epididymis, multiple N43.42
--- OUTSIDE RECORDS SUMMARY | 2024-09-03 16:08 | XMS_ITS | Encounter Summary ---
Author Organization [facility] Address [address] [place] [address] Care Team Providers Care Dandy Tender Name Role Phone Marco Smallwood MD Primary Care Provider [phone] Cameron Gonzalez Primary Care Provider [phone] Reason for Visit * Reason Comments E-prescribe Rx Request Encounter Details Date Type Department Care Team Description 01/27/2019 Refill Adult Medicine [address] [address] Antonietta Benites PA-C [address] [place] [address] [id number] E-prescribe Rx Request Social History Tobacco Use [...] an upcoming appointment? No[facility] to [facility] [...] N/A Patients current insurance carrier is: Payor: [employer] FFS / Plan: [employer] / Product Type: MEDICAID RISK documented in this encounter Plan of Treatment Not on file documented as of this encounter Visit Diagnoses Not on filedocumented in this encounter Care Teams Dandy Tender Relationship Specialty Start Date End Date Marco Smallwood MD [address] [place] [id number] PCP - General Internal Medicine 08/03/16 11/17/22 Cameron Gonzalez [address] [place] [id number] PCP - General Internal Medicine 11/18/22 documented as of this encounter
--- OUTSIDE RECORDS SUMMARY | 2024-09-03 16:08 | XMS_ITS | Encounter Summary ---
Author Organization [employer] [facility] Address [address] [facility] [address] [place] [address] Care Team Providers Care Resident Assistant Cna Name Role Phone Unavailable Primary Care Provider Unavailabl e Reason for Visit * Reason Onset Date Comments Med Refill 03/07/2023 Encounter Details Date Type Department Care Team (Late st Contact Info) Description 03/07/2023 Refill [facility] [address] [place] [address] Krzysztof Smith MD [address] [place] [address] Cyst of epididymis determined by ultrasound Social [...]
--- OUTSIDE RECORDS SUMMARY | 2024-09-03 16:08 | XMS_ITS | Encounter Summary ---
Author Organization [facility] Address [address] [place] [address] Care Team Providers Care Manager Retail Name Role Phone Marco Smallwood MD Primary Care Provider [phone] Cameron Gonzalez Primary Care Provider [phone] Encounter Details Date Type Department Care Team Description 12/21/2016 Transfer Records Medical Records [address] [place] [address] Abstract, Provider Social History Tobacco Use Types Packs/Day Years [...] on filedocumented in this encounter Care Teams Manager Retail Relationship Specialty Start Date End Date Marco Smallwood MD [address] [place] [address] PCP - General Internal Medicine 08/03/16 11/17/22 Cameron Gonzalez [address] [place] [id number] PCP - General Internal Medicine 11/18/22 documented as of this encounter
--- OUTSIDE RECORDS SUMMARY | 2024-09-03 16:08 | XMS_ITS | Encounter Summary ---
Author Organization [facility] Address [address] [place] [address] Care Team Providers Care Mapping Engineer Name Role Phone Marco Smallwood MD Primary Care Provider [phone] Cameron Gonzalez Primary Care Provider [phone] Encounter Details Date Type Department Care Team Description 11/23/2020 Telephone Adult Medicine [address] [address] Slava Ashley NP [address] [place] [address] Social History Tobacco Use Types Packs/Day Years [...] have Coronavirus / COVID-19? No / Unsure 11/10/2020 2:16 PM EDT documented as of this encounter Miscellaneous Notes * Telephone Encounter - Estelle Ardon M.A. - 11/23/2020 1:11 PM EDT Left message to return call, please put call through to [id number] or re message to [employer] * Telephone Encounter - Slava Ashley NP - 11/23/2020 11:56 AM EDT Please re-schedule this crystal at the office; Pt needs agile qa tester. documented in this encounter Plan of Treatment Not on file documented as of this encounter Visit Diagnoses Not on filedocumented in this encounter Care Teams Mapping Engineer Relationship Specialty Start Date End Date Marco Smallwood MD [address] [place] [address] PCP - General Internal Medicine 08/03/16 11/17/22 Cameron Gonzalez [address] [place] [id number] PCP - General Internal Medicine 11/18/22 documented as of this encounter
--- OUTSIDE RECORDS SUMMARY | 2024-09-03 16:08 | XMS_ITS | Clinical Summary ---
Author Organization [address] Address [address] [place] [phone] Phone Care Team Providers Care Last Turner Name Role Phone Cameron Gonzalez MD Primary Care Provider [phone] Allergies No known active allergies Medications carbamide peroxide (Debrox) 6.5 % otic solution Administer 5 drops into affected ear(s). 4 Active multivit-min/fe rrous fumarate (MULTI VITAMIN ORAL) Take 1 tablet by mouth 1 (one) time each day. 3 Active scopolamine (TRANSDERM-SCOP ) 1 mg over 3 days patch [address] 1 patch on the skin. 3 Active erythromycin 5 mg/gram (0.5 %) ophthalmic ointment Apply to affected eye 4 times a day for 7 days 3.5 g 5 Active omeprazole (PriLOSEC) [address] capsule TAKE 1 CAPSULE BY MOUTH EVERY DAY 90 capsule 5 Active ibuprofen (ADVIL,MOTRIN) 600 mg tablet TAKE 1 TABLET BY MOUTH EVERY 8 HOURS NEEDED FOR PAIN 60 tablet 1 5 Active acetaminophen (TYLENOL 8 HOUR) 650 [...] hyperlipidemia 09/28/2016 GERD (gastroesophageal reflux disease) 7 Immunizations Name Administration Dates Next Due Hepatitis B (Nmbveaf-X-Huyan , Recombivax HB-Adult) 19yo and older 11/28/2016 [...] COVID-19 Vaccine ( season) 2023 Influenza Vaccine (Season Ended) 2024 03/10/2023, 02/17/2020, 03/07/2019, Additional history exists Colorectal Cancer [...] age to complete this topic Meningococcal B Vaccine Aged Out No l onger eligible based on patient's age to complete [...] patient's age to complete this topic Insurance [facility] Care Teams Last Turner Relationship Specialty Start Date End Date Cameron Gonzalez MD [address] [place] [id number] PCP - General 11/18/22
--- OUTSIDE RECORDS SUMMARY | 2024-09-03 16:08 | XMS_ITS | Encounter Summary ---
Author Organization [employer] Address [address] [place] [address] 7[address] [place] [address] Care Team Providers Care Magazine Writer Name Role Phone Unavailable Primary Care Provider Unavailabl e Reason for Visit * Reason Onset Date Comments New Patient Appt 12/01/2022 Encounter Details Date Type Department Care Team (Late st Contact Info) Description 12/01/2022 Telephone [facility] [address] [place] [address] Alvaro Westfall MD [address] [place] [address] New Patient Appt Social History Tobacco Use [...] EDT FIORELLA Hernandez Called Pt to Offer PROJECT LANDSCAPE ARCHITECT Appt, could not reach pt due to phone being out of service . documented in this encounter Plan of Treatment Not on file documented as of this encounter Visit Diagnoses Not on filedocumented in this encounter
--- OUTSIDE RECORDS SUMMARY | 2024-09-03 16:08 | XMS_ITS | Encounter Summary ---
Author Organization [facility] Address [address] [place] [address] Care Team Providers Care Grinder Set Up Operator Thread Name Role Phone Marco Smallwood MD Primary Care Provider [phone] Cameron Gonzalez Primary Care Provider [phone] Reason for Visit * Reason Onset Date Comments REFERRAL 04/13/2018 Dermatology Encounter Details Date Type Department Care Team Description 04/13/2018 Telephone Dermatology - [address] [address] Marco Smallwood MD [address] [place] [address] REFERRAL (Dermatology) Social History Tobacco Use Types Packs/Day Years [...] encounter Miscellaneous Notes * Telephone Encounter - Keara Avina - 04/13/2018 8:04 AM EST All attempts to schedule this patient's Dermatology appointment have been exhausted. Referral will be closed. Reason for referral: excessive sweating documented in this encounter Plan of Treatment Not on file documented as of this encounter Visit Diagnoses Not on filedocumented in this encounter Care Teams Grinder Set Up Operator Thread Relationship Specialty Start Date End Date Marco Smallwood MD [address] [place] [phone] PCP - General Internal Medicine 08/03/16 11/17/22 Cameron Gonzalez [address] [place] [phone] PCP - General Internal Medicine 11/18/22 documented as of this encounter
--- OUTSIDE RECORDS SUMMARY | 2024-09-03 16:08 | XMS_ITS | Encounter Summary ---
Author Organization [facility] Address [address] [place] [address] Care Team Providers Care Survey Associate Name Role Phone Marco Smallwood MD Primary Care Provider [phone] Cameron Gonzalez Primary Care Provider [phone] Encounter Details Date Type Department Care Team Description 06/02/2017 Hospital Medical Records [address] [place] [address] Tomer Buck MD [address] [place] [address] Social History Tobacco Use Types Packs/Day Years [...] on filedocumented in this encounter Care Teams Survey Associate Relationship Specialty Start Date End Date Marco Smallwood MD [address] [place] [address] PCP - General Internal Medicine 08/03/16 11/17/22 Cameron Gonzalez [address] [place] [address] PCP - General Internal Medicine 11/18/22 documented as of this encounter
--- OUTSIDE RECORDS SUMMARY | 2024-09-03 16:08 | XMS_ITS | Encounter Summary ---
Author Organization [facility] Address [address] [place] [address] Care Team Providers Care Plant Tour Guide Name Role Phone Cameron Gonzalez Primary Care Provider [phone] Encounter Details Date Type Department Care Team Description 11/01/2023 Telephone Adult Medicine [address] [address] Cameron Gonzalez [address] [place] [address] Social History Tobacco Use Types Packs/Day Years [...] on filedocumented in this encounter Care Teams Plant Tour Guide Relationship Specialty Start Date End Date Cameron Gonzalez [address] [place] [address] [phone] PCP - General Internal Medicine 11/18/22 documented as of this encounter
--- OUTSIDE RECORDS SUMMARY | 2024-09-03 16:08 | XMS_ITS | Encounter Summary ---
Author Organization [facility] Address [address] [place] [address] Care Team Providers Care Medical Representative Name Role Phone Cameron Gonzalez Primary Care Provider Encounter Details Date Type Department Care Team Description 10/16/2023 Telephone Adult Medicine [address] [address] Cameron Gonzalez [address] [place] [address] Social History Tobacco Use Types Packs/Day Years [...] on filedocumented in this encounter Care Teams Medical Representative Relationship Specialty Start Date End Date Cameron Gonzalez [address] [place] [address] [id number] PCP - General Internal Medicine 11/18/22 documented as of this encounter
--- OUTSIDE RECORDS SUMMARY | 2024-09-03 16:08 | XMS_ITS | Encounter Summary ---
Author Organization [facility] Address [address] [place] [address] Care Team Providers Care Booth Supervisor Name Role Phone Marco Smallwood MD Primary Care Provider [phone] Cameron Gonzalez Primary Care Provider [phone] Reason for Visit * Reason Comments E-prescribe Rx Request Encounter Details Date Type Department Care Team Description 04/18/2017 Refill Gastroenterology - [address] [address] Arturo Del Rio PA-C E-prescribe Rx Request [...] on filedocumented in this encounter Care Teams Booth Supervisor Relationship Specialty Start Date End Date Marco Smallwood MD [address] [place] [id number] PCP - General Internal Medicine 08/03/16 11/17/22 Cameron Gonzalez [address] [place] [phone] PCP - General Internal Medicine 11/18/22 documented as of this encounter
--- OUTSIDE RECORDS SUMMARY | 2024-09-03 16:08 | XMS_ITS | Clinical Summary ---
Author Organization [employer] Address [address] [place] [address] [address] [place] [address] Care Team Providers Care Parts Sales Manager Name Role Phone Unavailable Primary Care Provider [...] patient's age to complete this topic Insurance [facility] C3
--- OUTSIDE RECORDS SUMMARY | 2024-09-03 16:08 | XMS_ITS | Encounter Summary ---
Author Organization [facility] Address [address] [place] [address] Care Team Providers Care Machine Feeder Raw Stock Name Role Phone Marco Smallwood MD Primary Care Provider [phone] Cameron Gonzalez Primary Care Provider [phone] Encounter Details Date Type Department Care Team Description 06/29/2021 Refill Adult Medicine [address] [id number] Marco Smallwood MD [address] [place] [address] [phone] Social History Tobacco Use Types Packs/Day Years [...] hyperhidrosis documented in this encounter Care Teams Machine Feeder Raw Stock Relationship Specialty Start Date End Date Marco Smallwood MD [address] [place] [phone] PCP - General Internal Medicine 08/03/16 11/17/22 Cameron Gonzalez [address] [place] [id number] PCP - General Internal Medicine 11/18/22 documented as of this encounter
--- OUTSIDE RECORDS SUMMARY | 2024-09-03 16:08 | XMS_ITS | Clinical Summary ---
Author Organization [facility] Address [address] [facility] [place] [address] Care Team Providers Care Furniture Refinisher Name Role Phone Cameron Gonzalez Primary Care Provider [phone] Allergies No known active allergies Medications Medication Sig Dispensed Refills Start Date End Date Status omeprazole (PRILOSEC) 20 MG capsule TAKE 1 CAPSULE BY MOUTH EVERY DAY 90 Capsule 1 09/04/2023 Active acetaminophen (Tylenol 8 Hour) 650 MG CR tablet Take 1 Tablet by mouth every 8 hours as needed for Pain. 60 Tablet 0 10/17/2023 Active ibuprofen (ADVIL,MOTRIN) 600 MG tablet Take 1 Tablet by mouth every 8 hours as needed for Pain. 60 Tablet 1 10/17/2023 Active cyclobenzaprine (FLEXERIL) 5 MG tablet Take 1 Tablet by mouth 2 times daily as needed for Muscle spasms. 45 Tablet 0 10/17/2023 Active tramadol (ULTRAM) 50 MG tablet Take 1 Tablet by mouth 2 times daily as needed for Pain (Severe pain). 20 Tablet 0 11/03/2023 Active Multiple Vitamin (Multi-Vitamins) Tab Take 1 Tablet by mouth daily. 90 Tablet 1 11/17/2023 Active carbamide peroxide (Debrox) 6.5 % otic solution Place 5 Drops into both ears 2 times daily for 5 days. Tilt head so ear to be treated points towards the ceiling. Hold medication in ear using part of a cotton ball. 10 mL 0 11/17/2023 Active metformin (GLUCOPHAGE-XR) 500 MG 24 hr tablet Take 1 Tablet by mouth daily (with breakfast). 90 Tablet 1 11/17/2023 Active Active Problems Problem Noted Date Prediabetes 02/18/2020 Genital warts 10/06/2016 Hiatal hernia 10/06/2016 Overview: Mild reducible 2011 Varicocele 10/06/2016 Overview: Testicular discomfort intermittent, significant pain when present. 2011 Mixed hyperlipidemia 09/28/2016 GERD (gastroesophageal reflux disease) 0 09/27/2016 Resolved Problems Problem Noted Date Resolved Date Cataract 10/06/2016 10/06/2016 Overview: Left eye, diag in [place] at age 20, no intervention Immunizations Name Administration Dates Next Due Hepatitis B > 19yrs 11/28/2016 Influenza (> 6 Months) 02/17/2016 Influenza Vaccine-preservati ve Free-quadrivalent 4 Years 03/10/2023,02/17/2020,03/07/2019, 018 TD (STATE SUPPLIED FOR ADULT S AND CHILDREN) 02/09/2011 Tdap 03/30/2018 Family History Medical History Relation Name Comments heart problem Maternal Grandmother Diabetes Mother HTN Asthma Sister leukemia Uncle Relation Name Status Comments Maternal [...] file Not on file Not on file Last Filed Vital Signs Vital Sign Reading Time Taken Comments Blood Pressure 136/84 11/03/2023 9:27 AM EDT provider will recheck Pulse 78 11/03/2023 9:27 AM EDT Temperature 36.3 ??C (97.4 ??F) 11/03/2023 9 :27 AM EDT Respiratory Rate 16 11/03/2023 9:27 AM EDT Oxygen Saturation - - Inhaled Oxygen Concentration - - Weight 67.1 kg (148 lb) 11/03/2023 9:27 AM EDT Height 167.6 cm (5' 6 ) 11/17/2023 11:0 2 AM EDT Body Mass Index 23.89 11/03/2023 9:27 AM EDT Plan of Treatment Health Maintenance Due Date Last Done Comments Covid-19 Vaccine (#1) 1977 DEPRESSION SCREENING/FOLLOWUP 05/01/2024 11/03/2023 SOCIAL NEEDS SCREENING 05/01/2024 INFLUENZA (Season Ended) 2024 023, 02/17/2020, 03/07/2019, Additional history exists BASELINE HEALTH EXAM 40-64 06/12/202506/12, 05/31/2023, 12/09/2022, Additional history exists COLON CANCER SCREENING 12/13/2025 6 (External Completion), 12/04/2015 DTAP/TDAP/TD (2 - Td or Tdap) 03/30/2028 03/30/2018, 02/09/2011 CHOLESTEROL SCREENING 06/12/2028 06/12/2023 , 12/09/2022, 02/17/2020, Additional history exists PNEUMOCOCCAL VACCINE FOR HIG H RISK PATIENTS (#1) 2042 Care Teams Furniture Refinisher Relationship Specialty Start Date End Date Cameron Gonzalez [address] [facility] [place] Barrios [address] PCP - General Internal Medicine 11/18/22
--- OUTSIDE RECORDS SUMMARY | 2024-09-03 16:08 | XMS_ITS | Encounter Summary ---
Author Organization [facility] Address [address] [place] [address] Care Team Providers Care Olive Packer Name Role Phone Cameron Gonzalez Primary Care Provider [phone] Encounter Details Date Type Department Care Team Description 06/12/2023 Pt. Non Urgent Medical Question Adult Medicine [address] [address] Beverly Mirza PA-C [address] [place] [address] Social History Tobacco Use Types Packs/Day Years [...] encounter Miscellaneous Notes * Telephone Encounter - Aamir Pike - 06/13/2023 8:40 AM ESTFrom: Kvng Ray To: Bandar Mirza Sent: 06/12/2023 6:16 PM EST Subject: Question regarding BLOOD TEST PANEL - CMP Are my test results good? documented in this encounter Plan of Treatment Not on file documented as of this encounter Visit Diagnoses Not on filedocumented in this encounter Care Teams Olive Packer Relationship Specialty Start Date End Date Cameron Gonzalez [address] [place] [address] PCP - General Internal Medicine 11/18/22 documented as of this encounter
--- OUTSIDE RECORDS SUMMARY | 2024-09-03 16:08 | XMS_ITS | Encounter Summary ---
Author Organization [facility] Address [address] [place] [address] Care Team Providers Care Lead Machinist Name Role Phone Cameron Gonzalez Primary Care Provider [phone] Encounter Details Date Type Department Care Team Description 11/03/2023 Telephone Adult Medicine [address] [address] Cameron Gonzalez [address] [place] [address] Social History Tobacco Use Types Packs/Day Years [...] encounter Miscellaneous Notes * Telephone Encounter - Aldo Nash - 11/03/2023 2:37 PM EDT Patients returned call. States patient has had no CT scan done in last 2 months. * Telephone Encounter - Asher Solomon M.A. - 11/03/2023 1:18 PM EDT Message left for patient to return call. When patient returns call please ask him if he had any CT Scan done in the last 2 months, if so where? * Telephone Encounter - Serina Lei - 11/03/2023 12:27 PM EDT Patients spouse is returning the phone call . * Telephone Encounter - Asher Solomon M.A. - 11/03/2023 11:11 AM EDT Images from the original note were not included. Message left for patient to return call. Cameron Gonzalez You 7 minutes ago (11:03 AM) NL Please check with the patient to see if he had any CAT scan done in the last 2 months, if so pleaseget me the report documented in this encounter Plan of Treatment Not on file documented as of this encounter Visit Diagnoses Not on filedocumented in this encounter Care Teams Lead Machinist Relationship Specialty Start Date End Date Cameron Gonzalez [address] [place] [address] PCP - General Internal Medicine 11/18/22 documented as of this encounter
--- OUTSIDE RECORDS SUMMARY | 2024-09-03 16:08 | XMS_ITS | Encounter Summary ---
Author Organization [facility] Address [address] [place] [address] Care Team Providers Care Market Manager Name Role Phone Marco Smallwood MD Primary Care Provider [phone] Cameron Gonzalez Primary Care Provider [phone] Reason for Visit * Reason Onset Date Comments APPOINTMENT 10/08/2020 Encounter Details Date Type Department Care Team Description 10/08/2020 Telephone Adult Medicine [address] [address] Luis Gomez PA-C APPOINTMENT Social History Tobacco [...] on filedocumented in this encounter Care Teams Market Manager Relationship Specialty Start Date End Date Marco Smallwood MD [address] [place] [address] PCP - General Internal Medicine 08/03/16 11/17/22 Cameron Gonzalez [address] [place] [phone] PCP - General Internal Medicine 11/18/22 documented as of this encounter
== END 2024-09-03 15:29 | disposition home or self-care (01) ==
LOC: HO.HUSH 14:57
PROVIDERS: PCP Internal Medicine; Visit Provider Urology
DX: N43.42 Spermatocele of epididymis, multiple (principal); Z13.9 Encounter for screening, unspecified
CPT/HCPCS: 99024

== ENCOUNTER → 2024-09-03 14:54 | Outpatient (BNVA) | payer OTHER, SELFPAY | PROVIDERS: PCP Internal Medicine; Visit Provider Urology | DX: N43.42 Spermatocele of epididymis, multiple (principal) | CPT/HCPCS: 81003; 99212 ==

== ENCOUNTER 2024-10-25 14:33 | Outpatient (AMB) | payer OTHER, SELFPAY ==
--- NOTE | 2024-10-25 14:43 | MHC.OFFVIS ---
Intake Visit Reasons: Vasectomy post op Intake Note: Patient is present for VASECTOMY POST-OP Urology Medication:NONE Antibiotic Allergy:NONE Blood Thinner:NONE Machinist Brake Required: No Allergies No Known Allergies Allergy (Verified 10/25/24 14:45) HPI Comments Details: Kvng is a pleasant 49-year-old male. He is seen for the following urologic issues - bilateral spermatocele Post vasectomy No sperm seen on high-powered field evaluation Upcoming repeat left spermatocelectomy PFSH Medical History GERD (gastroesophageal reflux disease) Spermatocele of epididymis, multiple Nocturia Surgical History No pertinent past surgical history Family History Maternal Uncle Leukemia Social History Are you a primary lead care manager to a significant other at home: No Do you presently have visiting nurse or other home services: No Patient Tobacco Use Status: Former Tobacco user Substance Use Type: Marijuana Review of Systems Const Denies chills and Denies fever(s) Card Reports no additional complaints and Denies syncope Resp Denies cough GI Denies abdominal pain and Denies heartburn Reports as per HPI and Denies change in libido Neuro Denies syncope Psych Denies change in libido Endo Denies change in libido Physical Exam Const General: cooperative, healthy appearing, comfortable and no acute distress Orientation/consciousness: patient oriented x3 HEENT Face and sinus: Yes normal facial exam Mouth: moist mucous membranes Neck Neck: Yes normal visual inspection, Yes full ROM and Yes trachea midline Chest Chest palpation & inspection: normal inspection of the chest Resp Effort & Inspection: normal respiratory effort, able to speak in complete sentences and no respiratory distress GI Inspection: Yes normal to inspection Back/Spine/Pelvis Cervical Spine: normal cervical lordosis Thoracic/Lumbar Spine: thoracic and lumbar spine normal to inspection Skin General skin exam: no rashes or lesions noted Neuro General: patient oriented x3, gait normal, tone normal and moves all extremities Extrem General: Yes normal to inspection and Yes capillary refill normal Results AMB Urinalysis, Automated UA Leukoctes 0 Андрей/uL Last Edit by LEW Hewitt on 10/25/24 15:19 UA Nitrite Negative Last Edit by LEW Hewitt on 10/25/24 15:19 UA Urobilinogen 0.2 mg/dL Last Edit by Chris Willis [facility] on 10/25/24 15:19 UA Protein 30 mg/dL Last Edit by Chris Willis [facility] on 10/25/24 15:19 UA pH 6.0 Last Edit by Chris Willis [facility] on 10/25/24 15:19 UA Blood 0 Oneil/uL Last Edit by Chris Willis [facility] on 10/25/24 15:19 UA Specific [place] 1.030 Last Edit by Chirs Willis [facility] on 10/25/24 15:19 UA Ketone Negative Last Edit by Chris Willis [facility] on 10/25/24 15:19 UA Bilirubin 0 mg/dL Last Edit by Chris Willis [facility] on 10/25/24 15:19 UA Glucose 0 mg/dL Last Edit by Chris Willis [facility] on 10/25/24 15:19 Results Reviewed Results Reviewed: Laboratory Last Values Urine pH (Auto) 6.0 10/25/24 15:18 Specific [place] (Auto) 1.030 10/25/24 15:18 Urine Protein (Auto) 30 mg/dL 10/25/24 15:18 Glucose (UA)(Auto) 0 mg/dL 10/25/24 15:18 Urine Ketones (Auto) Negative 10/25/24 15:18 Urine Blood (Auto) 0 Oneil/uL 10/25/24 15:18 Urine Nitrite (Auto) Negative 10/25/24 15:18 Urine Bilirubin (Auto) 0 mg/dL 10/25/24 15:18 Urine Urobilinogen (Auto) 0.2 mg/dL 10/25/24 15:18 Leukocyte Esterase (Auto) 0 Андрей/uL 10/25/24 15:18 Assessment & Plan Assessment & Plan (1) Spermatocele of epididymis, multiple: Code(s): N43.42 - Spermatocele of epididymis, multiple Category: Medical Plan Plan procedure Orders: Orders AMB Urinalysis Automated Today Z13.9 - Encounter for screening, unspecified Patient Instructions: This note is constructed using voice recognition software. While every effort has been made to ensure accuracy inspector final assembly mechanical errors may have been included. Imaging studies, laboratory and physical exam results were discussed and reviewed in detail. No major barriers to patient understanding were identified. An opportunity to ask questions regarding the treatment plan was provided. All questions were answered. The patient expressed understanding and agreement with the above treatment plan. The patient is aware they should contact our office by phone for worsening of their current condition or the appearance of new urologic symptoms. Compliance is encouraged with any medications and followup testing that is ordered. It is a privilege to participate in the urologic care of your patient. If you have any questions or concerns regarding treatment for the above conditions, or other urologic issues, please do not hesitate to contact me. The office telephone contact is [phone]. Sincerely, Dr Jarred Rajput MD, [facility] - Urology Compassionate Specialist Care for the Genitourinary System Coding Level of Care Code Est Pt Level 3 (78807) Diagnoses Spermatocele of epididymis, multiple N43.42
--- OUTSIDE RECORDS SUMMARY | 2024-10-25 14:55 | XMS_ITS | Clinical Summary ---
Author Organization [employer] Address [address] [place] [address] 7t [place] [address] Care Team Providers Care Gas Meter Prover Name Role Phone Unavailable Primary Care Provider [...] 80 05/30/2022 8:59 AM EST Temperature 36.7 C (98.1 F) 05/30/2022 8:59 AM EST Respiratory Rate 17 05/30/2022 8:59 AM EST [...] Vaccine ( - season) 2023 Influenza Vaccine (Season Ended) [...] patient's age to complete this topic Insurance [address] [place]
== END 2024-10-25 15:06 | disposition home or self-care (01) ==
LOC: HO.HUSH 14:34
PROVIDERS: PCP Internal Medicine; Visit Provider Urology
DX: N43.42 Spermatocele of epididymis, multiple (principal); Z13.9 Encounter for screening, unspecified
CPT/HCPCS: 99213

== ENCOUNTER → 2024-10-25 14:33 | Outpatient (BNVA) | payer OTHER, SELFPAY | PROVIDERS: PCP Internal Medicine; Visit Provider Urology | DX: N43.42 Spermatocele of epididymis, multiple (principal); Z98.52 Vasectomy status | CPT/HCPCS: 81003; 99212 ==

== ENCOUNTER 2024-11-04 06:53 | Day surgery (SDC) | payer OTHER, SELFPAY ==
--- OUTSIDE RECORDS SUMMARY | 2024-10-14 17:06 | XMS_ITS | Clinical Summary ---
Author Organization [email or web address] Address [address] [place] [address] 7[address] [place] [address] Care Team Providers Care Data Communications Software Consultant Name Role Phone Unavailable Primary Care Provider [...] Panel 1977 SDOH Screening 1977 Sigmoidoscopy 1977 Disability Screening 1977 Alcohol/Substance Use Screening 1989 Family Planning (PISQ) 02/07/1992 Hepatitis C Screening 1995 Hepatitis B Vaccines (2 of 3 - 19+ 3-dose series) 12/26/2016 11/28/2016 Tobacco Screening 05/30/2023 05/30/2022 COVID-19 Vaccine (1 - season) 2023 Influenza Vaccine (Season Ended) 2024 02/17/2020, 03/07/2019, 03/30/2018, Additional history exists Zoster Vaccines [...] Years) and At-Risk Patients (6 to 49) Years Aged Out No longer eligible based on patient's age to complete this topic RSV under 20 months Aged Out No longe r eligible based on patient's age to complete this topic Rotavirus Vaccines Aged Out No longer eligible based on patient's age to complete this topic Insurance [facility] C3 [address] [place]
[2024-10-30 09:10] VITALS: BMI 24.2
--- NOTE | 2024-10-31 09:04 | HO.ANESPROP2 ---
Documented by User: Alina Adamson NP 10/31/24 09:04 HPI - Anesthesia Eval Consult details Narrative: 49yo M for Excision Spermatocele PMFSH Active Problems Active Problems: All Active Problems Scrotal swelling (Acute) Vasectomy evaluation (Acute) Anxiety about health (Acute) Elevated PSA (Acute) Epididymal cyst (Acute) Nocturia (Acute) Spermatocele of epididymis, multiple (Acute) Hydrocele (Acute) Scrotal pain (Acute) Past Medical History Medical History GERD (gastroesophageal reflux disease) Spermatocele of epididymis, multiple Nocturia Family History Family History Maternal Uncle Leukemia Family history of problems with anesthesia: No Surgical History Surgical History No pertinent past surgical history History of Problems with Anesthesia: No Social History Social History Are you a primary spiritual care coordinator to a significant other at home: No Do you presently have visiting nurse or other home services: No Patient Tobacco Use Status: Former Tobacco user Substance Use Type: Marijuana Substance Use Frequency: Weekly Advance Directives: No Advance Directives Information Provided: Yes Meds Allergies Allergy/AdvReac Type Severity Reaction Status Date / Time No Known Allergies Allergy Verified 10/25/24 14:45 Home Medications ?Medication ?Instructions ?Recorded ?Confirmed ?Last Taken ?Type omeprazole 20 mg capsule,delayed 20 mg PO DAILY 10/07/21 06/06/24 1 Day Ago History release ~11/03/24 Exam Height,Weight and Vital Signs: Height 5 ft 6 in Weight 68 kg Assessment and Plan Assessment Anesthesia Assessment: Chart Reviewed Final Anesthetic Review Family History of Problems with Anesthesia: No History of Problems with Anesthesia: No Documented by User: Keegan Scales MD 11/04/24 09:08 HPI - Anesthesia Eval Consult details Narrative: 49yo M for Excision Spermatocele, left PMFSH Past Medical History Medical History GERD (gastroesophageal reflux disease) Spermatocele of epididymis, multiple Nocturia Family History Family History Maternal Uncle Leukemia Surgical History Surgical History No pertinent past surgical history Social History Social History Are you a primary spiritual care coordinator to a significant other at home: No Do you presently have visiting nurse or other home services: No Patient Tobacco Use Status: Former Tobacco user Substance Use Type: Marijuana Substance Use Frequency: Weekly Advance Directives: No Advance Directives Information Provided: Yes Meds Allergies Allergy/AdvReac Type Severity Reaction Status Date / Time No Known Allergies Allergy Verified 10/25/24 14:45 Home Medications ?Medication ?Instructions ?Recorded ?Confirmed ?Last Taken ?Type omeprazole 20 mg capsule,delayed 20 mg PO DAILY 10/07/21 06/06/24 1 Day Ago History release ~11/03/24 Exam Airway Mallampati Class: I TM Dist: >3cm Neck ROM: Full Loose/Missing/Broken Teeth: No Heart: ok Lungs: ok Assessment and Plan Assessment Anesthesia Assessment: Anesthesia Plan Discussed Final Anesthetic Review NPO: Yes ASA Class: II Final Preanesthetic Review: No Changes in Pt Med Stat, Meds/Allgs Chart Reviewed, Consent Obtained/Reviewed and Anes Risks/Benef Reviewed Patient Risk: Low Procedure Risk: Low Anesthetic Plan Anesthetic Plan: GA and Agree w/ Assess. and Plan Disposition: Standard PACU
[2024-11-04 07:19] VITALS: BP 119/74; PULSE 70; RESP 16; TEMP 36.5; O2SAT 99; BMI 23.1
[2024-11-04] MEDS: Lactated Ringers 1,000 ML 100 ML IVCONT (07:21)
--- NOTE | 2024-11-04 08:25 | MHC.SHP ---
Pre-Procedural Eval Section A - 24 Hr Update-Section A only Date of Service: 11/04/24 The patient is an INPATIENT: No Changes since office visit: No Cold of Flu in the past 2 weeks, No New Medical Problems, No Changes in Medication and No Patient answered all questions The patient has been examined within 24 hours of the surgical procedure. The History & Physical has been completed within 30 days and I have reviewed it.: Yes Section B - Complete if H&P > 30 days Chief Complaint: Spermatocele of epididymis, multiple Details of Present Illness: left spermatocele Allergies: Allergies Allergy/AdvReac Type Severity Reaction Status Date / Time No Known Allergies Allergy Verified 10/25/24 14:45 Plan I have reviewed the history and physical and performed a pertinent physical examination on my patient. No changes have occurred unless specified. Time Spent With Patient Time: Total time managing care of this patient today ____ minutes.
--- NOTE | 2024-11-04 09:36 | W.PM.OPN ---
Operative Note Operative Note Date of Service: 11/04/24 Narrative: PreOperative Diagnosis: Left recurrent spermatocele Post Operative Diagnosis: Left hydrocele hematoma Procedure: Hydrocelectomy Surgeon: Dr Jarred Rajput Anesthesia: General Indications for procedure: Left hydrocele with persistent discomfort Procedure: After informed consent was verified the patient was brought to the operating room and placed in a supine position. Anesthesia was administered per protocol. Patient was appropriately shaved and genitals were prepped and draped in sterile fashion. Safety pause time-out was performed. Antibiotics being given. Local anesthetic was infiltrated under the skin in a horizontal fashion on the scrotum. Skin incision was made using a blade through the subdermal layer. Using Allis clamps dissection was performed to the level of the tunica. The tunica around the testicle was elevated and dissected free from surrounding tissue. Because there had been prior surgery the tissue was markedly thickened and stuck to the thickened tunica The avascular plane around the tunica was entered and using a wet sponge blunt dissection was performed. Any small bleeding perforators were cauterized. 3-0 Vicryl was used to create stay sutures and elevate the tunica The tunica was opened in a longitudinal fashion. The fluid that was removed appeared to represent prior old hematoma. Fluid was removed with suction. The hydrocele sac was elevated. Excess thickened sac was dissected and removed. Skin edges of the tunica were cauterized carefully in order to try to minimize postprocedure hematoma. A running 3-0 chromic interlocking suture was used around the edges of the thickened hydrocele sac in order to try to minimize postoperative bleeding The testicle with resected sac was placed back into a dependent portion of the scrotum. A Fabiola drain was introduced through the dependent portion of the scrotum and a secondary exit site. Overlying skin fascia layer was closed with a running 3-0 Vicryl suture in 2 layers. Skin was closed with interrupted 3-0 chromic sutures. The Oneida drain was held in place with a safety clip. Soft fluff sponges were placed with mesh pants as dressing. Local anesthetic was placed in inguinal cord for post procedure pain relief. Patient tolerated procedure well was extubated in operating room transferred in stable condition to the recovery area Pathology: Hydrocele sac Drains: Drainage above
[2024-11-04 09:39] VITALS: BP 128/90; PULSE 74; RESP 18; TEMP 36.2; O2SAT 100
[2024-11-04 09:44] VITALS: BP 126/81; PULSE 61; RESP 18; O2SAT 100
[2024-11-04 09:49] VITALS: BP 117/77; PULSE 74; RESP 18; O2SAT 100
[2024-11-04 09:54] VITALS: BP 120/83; PULSE 62; RESP 18; TEMP 36.3; O2SAT 100
== END 2024-11-04 10:21 | disposition home or self-care (01) ==
PROVIDERS: PCP Internal Medicine; Visit Provider Urology
PROC: (CPT 54840; principal; 2024-11-04 08:40)
DX: N43.42 Spermatocele of epididymis, multiple (principal); N43.3 Hydrocele, unspecified; M79.81 Nontraumatic hematoma of soft tissue; R35.1 Nocturia; Z98.52 Vasectomy status; K21.9 Gastro-esophageal reflux disease without esophagitis; Z79.899 Other long term (current) drug therapy; Z87.891 Personal history of nicotine dependence
CPT/HCPCS: 55040; 88302; J1956; J2003; J2704; J2795; J3010

== ENCOUNTER → 2024-11-04 06:53 | Outpatient (BNV) | payer OTHER, SELFPAY | PROVIDERS: PCP Internal Medicine; Visit Provider Urology | DX: N43.3 Hydrocele, unspecified (principal) | CPT/HCPCS: 55040 ==

== ENCOUNTER 2024-12-10 15:03 | Outpatient (AMB) | payer OTHER, SELFPAY ==
--- NOTE | 2024-12-10 15:06 | MHC.OFFVIS ---
Intake Visit Reasons: Spermatocelectomy follow up Intake Note: Patient is present for Post op Spermatocelectomy for left hydrocele hematoma Urology Medication:NONE Antibiotic Allergy:NONE Blood Thinner:NONE Career And Guidance Counselor Required: Yes Career And Guidance Counselor Services: Career And Guidance Counselor Offered & Declined Accompanied by: Self / Same As Patient Allergies No Known Allergies Allergy (Verified 12/10/24 15:07) HPI Comments Details: Kvng is a pleasant 49-year-old male. He is seen for the following urologic issues - bilateral spermatocele - vasectomy Post left scrotal hematoma hydrocele repair Healing well Clear for all activity [facility] Medical History GERD (gastroesophageal reflux disease) Spermatocele of epididymis, multiple Nocturia Surgical History No pertinent past surgical history Family History Maternal Uncle Leukemia Social History Are you a primary animal caregiver to a significant other at home: No Do you presently have visiting nurse or other home services: No Patient Tobacco Use Status: Former Tobacco user Substance Use Type: Marijuana Review of Systems Const Denies chills and Denies fever(s) Card Reports no additional complaints and Denies syncope Resp Denies cough GI Denies abdominal pain and Denies heartburn Reports as per HPI and Denies change in libido Neuro Denies syncope Psych Denies change in libido Endo Denies change in libido Physical Exam Const General: cooperative, healthy appearing, comfortable and no acute distress Orientation/consciousness: patient oriented x3 HEENT Face and sinus: Yes normal facial exam Mouth: moist mucous membranes Neck Neck: Yes normal visual inspection, Yes full ROM and Yes trachea midline Chest Chest palpation & inspection: normal inspection of the chest Resp Effort & Inspection: normal respiratory effort, able to speak in complete sentences and no respiratory distress GI Inspection: Yes normal to inspection Back/Spine/Pelvis Cervical Spine: normal cervical lordosis Thoracic/Lumbar Spine: thoracic and lumbar spine normal to inspection Skin General skin exam: no rashes or lesions noted Neuro General: patient oriented x3, gait normal, tone normal and moves all extremities Extrem General: Yes normal to inspection and Yes capillary refill normal Assessment & Plan Assessment & Plan (1) Hydrocele: Code(s): N43.3 - Hydrocele, unspecified Category: Medical Plan Six-month follow-up Patient Instructions: This note is constructed using voice recognition software. While every effort has been made to ensure accuracy miniature set constructor errors may have been included. Imaging studies, laboratory and physical exam results were discussed and reviewed in detail. No major barriers to patient understanding were identified. An opportunity to ask questions regarding the treatment plan was provided. All questions were answered. The patient expressed understanding and agreement with the above treatment plan. The patient is aware they should contact our office by phone for worsening of their current condition or the appearance of new urologic symptoms. Compliance is encouraged with any medications and followup testing that is ordered. It is a privilege to participate in the urologic care of your patient. If you have any questions or concerns regarding treatment for the above conditions, or other urologic issues, please do not hesitate to contact me. The office telephone contact is [phone]. Sincerely, Dr Jarred Rajput MD, [facility] - Urology Compassionate Specialist Care for the Genitourinary System Coding Level of Care Code Global (93199) Diagnoses Hydrocele N43.3
--- OUTSIDE RECORDS SUMMARY | 2024-12-10 15:54 | XMS_ITS | Clinical Summary ---
Author Organization [facility] [address] [facility] Address [address] [place] [address] Phone Care Team Providers Care Biophysics Professor Name Role Phone Cameron Gonzalez MD Primary Care Provider [phone] Allergies No known active allergies Medications carbamide peroxide (Debrox) 6.5 % otic solution Administer 5 drops into affected ear(s). 05/31/19 24 Active multivit-min/f errous fumarate (MULTI VITAMIN ORAL) Take 1 tablet by mouth 1 (one) time each day. 03/07/20 23 Active acetaminophen (TYLENOL 8 HOUR) 650 mg 8 hr tablet TAKE 1 TABLET BY MOUTH EVERY 8 HOURS NEEDED FOR PAIN 90 tablet 2 10/09/19 25 Active omeprazole (PriLOSEC) [address] capsule Take 1 capsule (20 mg total) by mouth 2 (two) times a day. 180 capsule 1 10/02/19 25 Active glycopyrrolate (RobinuL) 1 mg tablet Take 1 tablet (1 mg total) by mouth 3 (three) times a day if needed (Excessive sweating). 90 each 2 10/02/19 25 Active ondansetron (ZOFRAN) 4 mg tablet Take 1 tablet (4 mg total) by mouth every 12 (twelve) hours if needed for nausea or vomiting. 30 tablet 1 10/02/19 25 Active ibuprofen (ADVIL,MOTRIN) 600 mg tablet TAKE 1 TABLET BY MOUTH EVERY 8 HOURS NEEDED FOR MODERATE PAIN 60 tablet 11/21/19 25 Active ibuprofen (ADVIL,MOTRIN) 600 mg tablet Take 1 tablet (600 mg total) by mouth every 8 (eight) hours if needed for moderate pain. for pain 60 tablet 10/09/19 25 07//2 025 Discontinued Active Problems Problem Noted Date Diagnosed Date Prediabetes 02/18/2020 Varicocele 10/06/2016 Overview (06/16/2023): Testicular discomfort intermittent, significant pain when present. 2012 Hiatal hernia 10/06/2016 Overview (06/16/2023): Mild reducible 2012 Genital warts 10/06/2016 Mixed hyperlipidemia 09/28/2016 GERD (gastroesophageal reflux disease) 7 Encounters Date Type Department Care Team Description 10/01/2024 2:45 PM EDT Office Visit Adult Medicine [address] [phone] Cameron Gonzalez MD Gastroesophageal reflux disease without esophagitis (Primary Dx); Nausea; Perspiration-excessive from Last 3 Months Immunizations Name Administration Dates Next Due Hepatitis B (Hzytcoc-V-Lgyxy , Recombivax HB-Adult) 19yo and older 11/28/2016 [...] Smoking Tobacco: Former Cigarettes Smokeless Tobacco: Never Tobacco Cessation:Counseling Given: Not Answered Alcohol Use Standard Drinks/Week Comments Yes 0 (1 standard drink = 0.6 oz pur e alcohol) Housing Instability Answer Date Recorde d Are you worried that in the next 2 months you may not have stable housing? No 10/01/2024 Food Access & Nutrition Answer Date Rec orded Do you have access to a vari ety of food including fruits and vegetables? Yes 10/01/2024 Access to Healthcare Answer Date Record ed Within the last 3 months, ho w many times did you visit the emergency department for your medical care? 0 10/01/2024 Health Literacy Answer Date Recorded How often do you need to hav e someone help you when you read instructions, pamphlets, or other written material from your doctor or pharmacy? Often 10/01/2024 Caregiver: How often do you need to have someone help you when you read instructions, pamphlets, or other written material from your doctor or pharmacy? Not on file 10/01/2024 Financial Risk Answer Date Recorded How hard is it for you to pa y for the very basics like food, housing, medical care, and air conditioning / heating? Unable to respond 10/01/2024 Transportation Answer Date Recorded Has the lack of transportati on kept you from meetings, work, or from getting things needed for daily living? No Has the lack of transportati on kept you from medical appointments or from getting medications? No 10/01/2024 Social Isolation Answer Date Recorded How often do you feel lonely or isolated from th ose around you? Never 10/01/2024 Food Risk Answer Date Recorded Within the past 12 months we worried whether our food would run out before we got money to buy more. Never true 10/01/2024 Within the past 12 months th e food we bought just didn't last and we didn't have money to get more. Never true 10/01/2024 Dependent Care Answer Date Recorded Do you need help finding or paying for care for your loved ones. For example, child and family services worker or elderly care for an older adult? No 10/01/2024 Education Answer Date Recorded Do you think completing more education or training, like finishing a GED, going to college, or learning a trade, would be helpful for you? Patient declined 10/01/2024 Employment and Income Answer Date Recor ded During the last four weeks, have you been actively looking for work? Yes 10/01/2024 Living Situation Answer Date Recorded What is your living situation? 0 10/01/2024 Sex and Gender Information Value Date Recorded Sex Assigned at Male 09/30/2024 3:42 PM EDT Legal Sex Male 3:32 PM EST Gender Identity Male 09/30/2024 3:42 PM EDT Sexual Orientation Not on file Obstetrics History Last Filed Vital Signs Vital Sign Reading Time Taken Comments Blood Pressure 110/68 10/01/2024 2:32 PM EDT Pulse 80 10/01/2024 2:32 PM EDT Temperature 36.9 C (98.5 F) 10/01/2024 2:32 PM EDT Respiratory Rate 14 10/01/2024 2:32 PM EDT Oxygen Saturation 98% 05/20/2024 1:43 PM EST Inhaled Oxygen Concentration - - Weight 66 kg (145 lb 6.4 oz) 10/01/2024 2:32 PM EDT Height 165.1 cm (5' 5 ) 10/01/2024 2:32 PM EDT Body Mass Index 24.2 10/01/2024 2:32 PM EDT Plan of Treatment Upcoming Encounters Date Type Department Care Team (Late st Contact Info) Description 04/04/2025 8:30 AM EST Office Visit Adult Medicine [address] [phone] Cameron Gonzalez MD [address] [place] [id number] Health Maintenance Due Date Last Done Comments Hepatitis B Vaccines (2 of 3 - 19+ 3-dose series) 12/26/2016 11/28/2016 HIV Screening 03/30/2022 Hepatitis C Screening 03/30/2022 COVID-19 Vaccine ( season) 2023 Influenza Vaccine (#1) 2024 3, 02/17/2020, 03/07/2019, Additional history exists Social Influencers of Health Screening 10/01/2025 10/01/2024 Colorectal Cancer Screening: Colonoscopy 12/13/2025 12/14/2015 DTaP,Tdap,and Td Vaccines (3 - Td or Tdap) 03/30/2028 03/30/2018, 02/09/2011 Cholesterol Screening (Lipid Panel) 06/12/2028 06/12/2023 Depression Screening Completed 10/01/2024 HIB Vaccines Aged Out No longer eligi [...] 5 Years) and At-Risk Patients (6 to 49 Years) Aged Out No longer eligible based on patient's age to complete this topic RSV Immunization Patients Under 20 months Aged Out No longer eligible based on patient's age to complete this topic Varicella Vaccines Aged Out No longer eligible based on patient's age to complete this topic Insurance [facility] Care Teams Biophysics Professor Relationship Specialty Start Date End Date Cameron Gonzalez MD [address] [place] [id number] PCP - General 11/18/22
--- OUTSIDE RECORDS SUMMARY | 2024-12-10 15:54 | XMS_ITS | Clinical Summary ---
Author Organization [employer] Address [address] [place] [address] [address] [place] [address] Care Team Providers Care Part Maker Name Role Phone Unavailable Primary Care Provider [...] Vaccine (1 - season) 2023 Influenza Vaccine (#1) 2024 , 03/07/2019, 03/30/2018, Additional history exists Zoster [...] complete this topic Insurance 21 [address]ina [address]ter[employer] [place]
== END 2024-12-10 15:30 | disposition home or self-care (01) ==
LOC: HO.HUSH 15:03
PROVIDERS: PCP Internal Medicine; Visit Provider Urology
DX: N43.3 Hydrocele, unspecified (principal)
CPT/HCPCS: 99024

== ENCOUNTER → 2024-12-10 15:03 | Outpatient (BNVA) | payer OTHER, SELFPAY | PROVIDERS: PCP Internal Medicine; Visit Provider Urology | DX: N43.3 Hydrocele, unspecified (principal); N43.42 Spermatocele of epididymis, multiple; R35.1 Nocturia | CPT/HCPCS: 99212 ==